=== PATIENT | female | born 1950 | race Two or more races ===

== ENCOUNTER 2016-10-29 15:41 | Emergency (ER) | payer MEDICARE, BC ==
[~2016-10-29] VITALS: Ht 167.6 cm; Wt 72.6 kg
--- NOTE | 2016-10-29 16:11 | NUR ---
DEMETRIUS FROM [facility] DT LEFT KNEE PAIN SP FALL 2 DAYS AGO, NO KO. PATIENT IS AWAKE, HOWEVER CONFUSED,. APPEARS IN NO APPRENT DISTRESS, RESPIRATION EVEN AND UNLABORED. SKIN IS WARM TO TOUCH AND NON DIAPHORETIC. PT IS AFEBRILE. VSS
--- NOTE | 2016-10-29 16:44 | NUR ---
MD SMITH AT
[2016-10-29 16:51] LABS: BASOPHILS # (AUTO) 0.1 /CMM (0.0-0.2); BASOPHILS % (AUTO) 2.4 % (0.0-2.0); EOSINOPHILS # (AUTO) 0.2 /CMM (0.0-0.7); EOSINOPHILS % (AUTO) 2.6 % (0.0-6.0); HEMATOCRIT 37 % (33-45); HEMOGLOBIN 12.2 g/dL (11.5-14.8); LYMPHOCYTES # (AUTO) 1.2 /CMM (0.8-4.8); LYMPHOCYTES % (AUTO) 19.9 % (20.0-44.0); MEAN CORPUSCULAR HEMOGLOBIN 29 PG (26.0-33.0); MEAN CORPUSCULAR HGB CONC 33 g/dl (31.0-36.0); MEAN CORPUSCULAR VOLUME 88 fL (82-100); MONOCYTES # (AUTO) 0.6 /CMM (0.1-1.30); MONOCYTES % (AUTO) 9.4 % (2.0-12.0); NEUTROPHILS # (AUTO) 4.1 /CMM (1.8-8.9); NEUTROPHILS % (AUTO) 65.7 % (43.0-81.0); PLATELET COUNT (AUTO) 176 /CMM (150-450); RDW COEFFICIENT OF VARIATION 13.9 (11.5-15.0); RED BLOOD CELL COUNT(AUTO) 4.18 MIL/uL (4.0-5.2); WHITE BLOOD COUNT (AUTO) 6.2 K/uL (4.3-11.0)
[2016-10-29 17:00] LABS: CALCIUM, SERUM 8.5 mg/dL (8.5-10.1); CREATININE 0.6 mg/dL (0.6-1.3); POTASSIUM 4.2 mmol/L (3.5-5.1)
[2016-10-29 18:18] VITALS: BP 124/80
--- NOTE | 2016-10-29 18:19 | NUR ---
PATIENT WAS PICKED UP BY TWO PATENT EXAMINER TO BE SENT TO [facility]. VSS
== END 2016-10-29 18:21 | disposition home or self-care (01) ==
LOC: ER 15:43
DX: M25.562 Pain in left knee (principal); F03.90 Unspecified dementia, unspecified severity, without behavioral disturbance, psychotic disturbance, mood disturbance, and anxiety; I10 Essential (primary) hypertension; F32.9 Major depressive disorder, single episode, unspecified; E78.00 Pure hypercholesterolemia, unspecified
CPT/HCPCS: 36415; 73564; 80048; 85025; 99285; A4606; Z7610

== ENCOUNTER 2016-11-22 10:44 | Inpatient (IN) | payer MEDICARE, BC ==
[~2016-11-22] VITALS: Ht 165.1 cm; Wt 70.8 kg
[2016-11-22] MEDS ORDERED: OLANZAPINE 10 MG VIAL IM ONE ×4 (10:52→13:30)
[2016-11-22] MEDS ORDERED: WATER FOR INJECTION,STERILE 10 ML ONE ×2 (10:53→13:15)
--- NOTE | 2016-11-22 10:54 | NUR ---
Bibra from [facility] due to pt is more verbal non usual-- per report, staffs are suspecting abdominal pain. Patient arrived, alert, noted yelling with no apparent reason. Able to follow single command, howver patient is confused. Denies pain, abdomen non tendered and non distented. Skin is warm to touch and non diaphoretic, patient is afebrile. vss
[2016-11-22 11:11] LABS: BASOPHILS % (AUTO) 0.2 % (0.0-2.0); EOSINOPHILS # (AUTO) 0.1 /CMM (0.0-0.7); EOSINOPHILS % (AUTO) 3.2 % (0.0-6.0); HEMATOCRIT 31 % (33-45); HEMOGLOBIN 10.7 g/dL (11.5-14.8); LYMPHOCYTES # (AUTO) 0.9 /CMM (0.8-4.8); LYMPHOCYTES % (AUTO) 26.3 % (20.0-44.0); MEAN CORPUSCULAR HEMOGLOBIN 31 PG (26.0-33.0); MEAN CORPUSCULAR HGB CONC 35 g/dl (31.0-36.0); MEAN CORPUSCULAR VOLUME 89 fL (82-100); MONOCYTES # (AUTO) 0.3 /CMM (0.1-1.30); MONOCYTES % (AUTO) 8.3 % (2.0-12.0); NEUTROPHILS # (AUTO) 2.3 /CMM (1.8-8.9); PLATELET COUNT (AUTO) 167 /CMM (150-450); RDW COEFFICIENT OF VARIATION 14.1 (11.5-15.0); RED BLOOD CELL COUNT(AUTO) 3.48 MIL/uL (4.0-5.2); WHITE BLOOD COUNT (AUTO) 3.6 K/uL (4.3-11.0)
[2016-11-22] MEDS ORDERED: CARV3.122 PO (11:13)
[2016-11-22] MEDS ORDERED: LOPE2CAP PO (11:13)
[2016-11-22] MEDS ORDERED: LIOT25TA9 PO (11:13)
[2016-11-22] MEDS ORDERED: ACET-868 PO (11:13)
[2016-11-22] MEDS ORDERED: OLAN2.5T3 PO (11:13)
[2016-11-22] MEDS ORDERED: ASPI-991 PO (11:13)
[2016-11-22] MEDS ORDERED: CALC1CAP21 PO (11:13)
[2016-11-22] MEDS ORDERED: OLAN5TAB3 PO (11:13)
[2016-11-22] MEDS ORDERED: OXYB10TA PO (11:13)
[2016-11-22] MEDS ORDERED: MULT-24 PO (11:13)
[2016-11-22] MEDS ORDERED: CYAN10009 PO (11:13)
[2016-11-22] MEDS ORDERED: CITA20TA11 PO (11:13)
[2016-11-22] MEDS ORDERED: GABA-532 PO (11:13)
[2016-11-22] MEDS ORDERED: ATOR10TA PO (11:13)
[2016-11-22] MEDS ORDERED: AMLO5TAB2 PO (11:13)
[2016-11-22] MEDS ORDERED: LAMO150T33 PO (11:13)
[2016-11-22] MEDS ORDERED: DOCU250C75 PO (11:13)
[2016-11-22] MEDS ORDERED: LOSA100T15 PO (11:13)
[2016-11-22] MEDS ORDERED: LORA0.5T PO (11:13)
[2016-11-22 11:17] LABS: APPEARANCE,URINE Slightly Cloudy (CLEAR); BILIRUBIN,URINE Negative (NEGATIVE); BLOOD, URINE Negative Ery/uL (NEGATIVE); COLOR,URINE Yellow (YELLOW); KETONES,URINE Negative (NEGATIVE); LEUKOCYTE ESTERASE ,URINE Negative (NEGATIVE); NITRITE, URINE Positive (NEGATIVE); PH,URINE 5.5 (5.0-8.0); PROTEIN,URINE Negative (NEGATIVE); UGLUCOSE Negative (NEGATIVE); UROBILINOGEN,URINE 0.2 EU/dL (0.2)
[2016-11-22 11:19] LABS: CALCIUM, SERUM 8.3 mg/dL (8.5-10.1); CREATININE 0.5 mg/dL (0.6-1.3); POTASSIUM 3.6 mmol/L (3.5-5.1)
[2016-11-22 11:27] LABS: ALBUMIN 3.1 g/dL (3.4-5.0); BILIRUBIN,DIRECT 0.1 mg/dL (0.0-0.2); BILIRUBIN,TOTAL 0.3 mg/dL (0.2-1.0); TOTAL PROTEIN, SERUM 6.1 g/dL (6.4-8.2)
[2016-11-22 11:31] LABS: BACTERIA,URINE Many /HPF (None Seen); RBC,URINE 0-2 /HPF (0-2); SQUAMOUS EPITHELIAL CELL,UR Few /HPF (None Seen); WBC,URINE 0-2 /HPF (0-3)
[2016-11-22] MEDS ORDERED: CEFTRIAXONE 1GM BAG (ER ONLY) 50 ML IV ONE (12:27)
[2016-11-22] MEDS ORDERED: CEFTRIAXONE 1 G in IV D5W 50 ML IV ONE (12:30)
--- NOTE | 2016-11-22 13:12 | NUR ---
CALLED [facility] DR SILVA WAS PAGED.
[2016-11-22] MEDS ORDERED: METOPROLOL TARTRATE INJ 5 MG/5 ML AMPUL IVP STA (13:31)
[2016-11-22] MEDS ORDERED: METOPROLOL TARTRATE INJ 5 MG/5 ML AMPUL ONE (13:32)
--- NOTE | 2016-11-22 13:56 | NUR ---
CALLED [facility] DR SILVA WAS REPAGED.
--- NOTE | 2016-11-22 14:02 | NUR ---
DR SILVA ON THE PHONE WITH DR CORRAL.
--- NOTE | 2016-11-22 14:02 | NUR ---
report given to demetris. pt transfered to floor. stable vitals.
--- NOTE | 2016-11-22 14:10 | NUR ---
RN MS NOTES PATIENT TRANSFERRED FROM E.R. DEPARTMENT, VIA [place], ALERT AND ORIENTESD X3 WITH EPISODE OF CONFUSION AND SCREAMING, PATIENT HAS BEHAVIOR OF TAPPING RIGHT HIP, NO SHORTNESS OF BREATH, NO DISTRESS NOTED, PATIENT COMPLAINED OF RIGHT HIP PAIN 3/10, NO COMPLAINT OF ABDOMINAL PAIN, ALL NEEDS ATTENDED AND MET, CALL LIGHT WITHIN REACH, WILL CONTINUE TO MONITOR.
[2016-11-22 14:30] VITALS: BP 178/100
[2016-11-22] MEDS ORDERED: MAG HYDROX/AL HYDROX/SIMETH 30 ML UDC PO PRN (14:30)
[2016-11-22] MEDS: CARVEDILOL 3.125 MG TABLET PO SCH ×2 (14:30→18:03)
[2016-11-22] MEDS ORDERED: MAGNESIUM HYDROXIDE 30 ML UDC PO PRN (14:30)
[2016-11-22] MEDS ORDERED: ONDANSETRON HCL/PF 4 MG/2 ML VIAL IVP PRN (14:30)
[2016-11-22] MEDS ORDERED: HYDROCODONE/APAP 5/325MG 1 EACH TABLET PO PRN (14:30)
[2016-11-22] MEDS ORDERED: ZOLPIDEM TARTRATE 5 MG TABLET PO PRN (14:30)
[2016-11-22] MEDS ORDERED: LOPERAMIDE HCL (2 MG CAP) 2 MG CAPSULE PO PRN (14:30)
[2016-11-22] MEDS: AMLODIPINE BESYLATE 5 MG TABLET PO SCH ×2 (14:30→17:09)
[2016-11-22] MEDS ORDERED: ACETAMINOPHEN 325 MG TABLET PO PRN ×2 (14:30)
[2016-11-22] MEDS ORDERED: Z GUARD REMEDY 2 OZ OINT TP PRN (14:30)
[2016-11-22 14:45] VITALS: BP 192/94
[2016-11-22] MEDS ORDERED: IV SET PRIMARY PUMP SET 1 EA INFUS.SET MC ONE (15:02)
[2016-11-22] MEDS: CITALOPRAM HYDROBROMIDE 20 MG TABLET PO SCH (15:11)
[2016-11-22] MEDS: ASPIRIN EC 81 MG TABLET.DR PO SCH (15:11)
[2016-11-22] MEDS: GABAPENTIN 100 MG CAPSULE PO SCH ×2 (15:12→17:09)
[2016-11-22] MEDS: DOCUSATE SODIUM 250 MG CAPSULE PO SCH ×2 (15:12→21:28)
[2016-11-22] MEDS: CYANOCOBALAMIN 500 MCG TABLET PO SCH (15:12)
[2016-11-22] MEDS: MULTIVITAMINS,THERAPEUTIC 1 UDTAB TABLET PO SCH (15:12)
[2016-11-22] MEDS: IV NS 0.9% 1,000 ML IV PRN (15:20)
--- NOTE | 2016-11-22 15:27 | NUR ---
RN MS NOTES BLOOD PRESSURE MEDICATIONS HELD DUE TO LOW HEART RATE OF 52. WILL RECHECK BLOOD PRESSURE IN AN HOUR.
[2016-11-22] MEDS ORDERED: IOHEXOL-300 100 ML VIAL IV ONE (15:33)
[2016-11-22] MEDS ORDERED: CT SWABBABLE VALVE TRANS SET 1 EA INFUS.SET MC ONE (15:33)
[2016-11-22] MEDS ORDERED: IV NS 0.9% 0 ML IV ONE (15:33)
[2016-11-22 16:00] VITALS: BP 186/97
[2016-11-22] MEDS: LORAZEPAM 0.5 MG TABLET PO PRN (16:38)
--- NOTE | 2016-11-22 16:39 | NUR ---
PT WILL NOT STOP MOVING OR YELLING, RN IS AWARE. RN WILL CALL WHEN PT IS READY FOR CT SCAN.
--- NOTE | 2016-11-22 16:58 | NUR ---
RN MS NOTES PATIENT SEEN AND EXAMINED BY DR. SILVA, INFORMED MD, PER AUTH SPECIALIST PATIENT MAY NOT BE ABLE TO STAY STILL FOR THE CT SCAN, PER MD, RECEIVED ORDER TO CANCEL CT SCAN, INFORMED MD OF LATEST VITAL SIGS 160/90 PULSE 50-52. PIV ON RIGHT AC INFILTRATED, REINSERTED PIV ON LEFT HAND G20, AFTER 3 ATTEMPTS, PATIENT IS IN STABLE CONDITION AT THIS TIME, WILL CONTINUE TO MONITOR.
--- NOTE | 2016-11-22 18:32 | NUR ---
RN MS NOTES PATIENT IN BED, WATCHING TV, IN STABLE CONDITION, DENIES PAIN AT THIS TIME, PIV ON LEFT HAND PATENT AND INTACT, ATIVAN EFFECTIVE, PATIENT APPEARS COMFORTABLE AND CALM, ALL NEEDS ATTENDED AND MET, CALL LIGHT WITHIN REACH, WILL ENDORSE TO CHARTER REPRESENTATIVE FOR HUGH.
--- NOTE | 2016-11-22 19:10 | NUR ---
RN NOTES RECEIVED PT AWAKE, NO SOB, NOT IN DISTRESS, ON ROOM AIR WITH GOOD SATURATION. PT ALERT AND ORIENTED X2, WITH CONFUSION, WITH BEHAVIOUR OF SCREAMING AND TAPPING HER RIGHT HIP/UPPER THIGH. ABDOMEN SOFT, NON TENDER, PT DENIES PAIN AT THIS TIME. IV ACCESS ON LEFT HAND PATENT AND INTACT WITH ONGOING IVF INFUSING WELL. KEPT BED IN THE LOWEST POSITION, LOCKED, SIDE RAILS X3 UP, BED ALARM ON, WITH CALL LIGHT WITH IN REACH. KEPT COMFORTABLE AND ATTENDED. WILL CONTINUE TO MONITOR PT.
[2016-11-22 20:00] VITALS: BP 164/94
[2016-11-22] MEDS: ATORVASTATIN 10 MG TABLET PO SCH (21:28)
[2016-11-22] MEDS: OLANZAPINE 5 MG TABLET PO SCH (21:28)
[2016-11-22 22:00] VITALS: BP 164/94
--- NOTE | 2016-11-22 23:14 | NUR ---
RN NOTES PT NOT SLEEPING, CONSTANTLY TAPPING HER RIGHT HIP AND SCREAMS AT TIMES. AMBIEN 5 MG TAB GIVEN, AND TOLERATED WELL. WILL CONTINUE TO MONITOR PT.
[2016-11-23] MEDS: IV NS 0.9% 1,000 ML IV PRN (05:04)
--- NOTE | 2016-11-23 06:40 | NUR ---
RN NOTES PT ASLEEP, BREATHING REGULAR AND UNLABORED, NO SIGNS OF DISTRESS AND DISCOMFORT NOTED. VITAL SIGNS STABLE, BP AT 160'S. NO COMPLAIN OF ABDOMINAL PAIN. NO EPISODE OF NAUSEA AND VOMITING NOTED. ON CLEAR LIQUIDS AND TOLERATED WELL. WITH EPISODE OF SCREAMING AND TAPPING HER RIGHT HIP. FALL PRECAUTION OBSERVED. ALL NEEDS MET. WILL ENDORSE TO MORNING RN FOR CONTINUITY OF CARE.
[2016-11-23 06:56] LABS: ALBUMIN 3.4 g/dL (3.4-5.0); BILIRUBIN,TOTAL 0.6 mg/dL (0.2-1.0); CALCIUM, SERUM 8.9 mg/dL (8.5-10.1); CREATININE 0.4 mg/dL (0.6-1.3); MAGNESIUM 1.9 mg/dL (1.8-2.4); PHOSPHORUS 3.9 mg/dL (2.5-4.9); POTASSIUM 3.3 mmol/L (3.5-5.1)
--- NOTE | 2016-11-23 07:30 | NUR ---
MS RN NOTES RECEIVED PT AWAKE, AOX1, WITH CONFUSION, NO SOB, NOT IN DISTRESS, NOTE PATIENT IS YELLING AND TAPPING HER RIGHT HIP/UPPER THIGH. ABDOMEN SOFT, NON TENDER. IV HL ON HER LT HAND PATENT AND INTACT WITH IVF'S ON PROGRESS. BED IN THE LOWEST POSITION, LOCKED, SIDE RAILS X3 UP, BED ALARM ON, CALL LIGHT WITH IN REACH. FOR SAFETY MEASURES. WILL CONTINUE TO MONITOR PT.
[2016-11-23 07:44] LABS: HEMOGLOBIN 13.1 g/dL (11.5-14.8); RED BLOOD CELL COUNT(AUTO) 4.31 MIL/uL (4.0-5.2); WHITE BLOOD COUNT (AUTO) 4.3 K/uL (4.3-11.0)
[2016-11-23 07:45] LABS: BASOPHILS % (AUTO) 0.2 % (0.0-2.0); EOSINOPHILS # (AUTO) 0.2 /CMM (0.0-0.7); EOSINOPHILS % (AUTO) 3.7 % (0.0-6.0); HEMATOCRIT 39 % (33-45); LYMPHOCYTES # (AUTO) 0.7 /CMM (0.8-4.8); LYMPHOCYTES % (AUTO) 17.1 % (20.0-44.0); MEAN CORPUSCULAR HEMOGLOBIN 30 PG (26.0-33.0); MEAN CORPUSCULAR HGB CONC 34 g/dl (31.0-36.0); MEAN CORPUSCULAR VOLUME 89 fL (82-100); MONOCYTES # (AUTO) 0.3 /CMM (0.1-1.30); MONOCYTES % (AUTO) 7.6 % (2.0-12.0); NEUTROPHILS # (AUTO) 3.1 /CMM (1.8-8.9); NEUTROPHILS % (AUTO) 71.4 % (43.0-81.0); PLATELET COUNT (AUTO) 175 /CMM (150-450); RDW COEFFICIENT OF VARIATION 14.8 (11.5-15.0)
[2016-11-23 08:00] VITALS: BP 160/85
--- NOTE | 2016-11-23 08:30 | NUR ---
MS RN NOTES SEEN AND EXAMINED BY DR. SILVA WITH NO NEW ORDERS MADE.
[2016-11-23] MEDS: GABAPENTIN 100 MG CAPSULE PO SCH ×3 (08:46→16:33)
[2016-11-23] MEDS: AMLODIPINE BESYLATE 5 MG TABLET PO SCH ×2 (08:46→16:33)
[2016-11-23] MEDS: LamoTRIgine 100 MG TABLET PO SCH (08:46)
[2016-11-23] MEDS: CALCIUM CARB 600MG /VIT D 1 EACH TABLET PO SCH (08:46)
[2016-11-23] MEDS: CITALOPRAM HYDROBROMIDE 20 MG TABLET PO SCH (08:47)
[2016-11-23] MEDS: PANTOPRAZOLE 40 MG TABLET.DR PO SCH (08:47)
[2016-11-23] MEDS: LOSARTAN POTASSIUM 50 MG TABLET PO SCH (08:47)
[2016-11-23] MEDS: ASPIRIN EC 81 MG TABLET.DR PO SCH (08:47)
[2016-11-23] MEDS: CARVEDILOL 3.125 MG TABLET PO SCH ×2 (08:47→16:33)
[2016-11-23] MEDS: OXYBUTYNIN CHLORIDE 5 MG TABLET PO SCH (08:47)
[2016-11-23] MEDS: MULTIVITAMINS,THERAPEUTIC 1 UDTAB TABLET PO SCH (08:48)
[2016-11-23] MEDS: OLANZAPINE 2.5 MG TABLET PO SCH (08:48)
[2016-11-23] MEDS: CYANOCOBALAMIN 500 MCG TABLET PO SCH (08:48)
[2016-11-23] MEDS: LIOTHYRONINE SODIUM (25 MCG) 25 MCG TABLET PO SCH (09:41)
[2016-11-23 11:00] VITALS: BP 136/70
[2016-11-23] MEDS ORDERED: POTASSIUM CHLORIDE 20 MEQ POWDER PACKET PO SCH (12:00)
[2016-11-23] MEDS: CEFTRIAXONE 1 G in IV D5W 50 ML IV SCH (12:06)
[2016-11-23] MEDS ORDERED: SECONDARY IV SET 1 EA INFUS.SET MC ONE (12:08)
[2016-11-23 16:00] VITALS: BP 138/84
[2016-11-23 17:18] VITALS: BP 138/89
--- NOTE | 2016-11-23 18:13 | NUR ---
MS RN NOTES ALL NEEDS ATTENDED AND ANTICIPATED. ENDORSED TO INCOMING SHIFT FOR CONTINUITY OF CARE.
--- NOTE | 2016-11-23 19:05 | NUR ---
RN NOTES RECEIVED PT ASLEEP, APPEARS COMFORTABLE IN BED, NO SOB, NOT IN DISTRESS, ON ROOM AIR WITH GOOD SATURATION. PT SCREAMING AND TAPPING HER RIGHT HIP/UPPER THIGH AT TIMES. ABDOMEN SOFT, NON TENDER, PT DENIES PAIN AT THIS TIME. IV ACCESS ON LEFT HAND PATENT AND INTACT WITH ONGOING IVF INFUSING WELL. KEPT BED IN THE LOWEST POSITION, LOCKED, SIDE RAILS X3 UP, BED ALARM ON, WITH CALL LIGHT WITH IN REACH. KEPT COMFORTABLE, CLEAN AND DRY. WILL CONTINUE TO MONITOR PT.
[2016-11-23 20:00] VITALS: BP 127/75
[2016-11-23] MEDS: OLANZAPINE 5 MG TABLET PO SCH (21:17)
[2016-11-23] MEDS: ATORVASTATIN 10 MG TABLET PO SCH (21:17)
[2016-11-23] MEDS: DOCUSATE SODIUM 250 MG CAPSULE PO SCH (21:17)
[2016-11-23 22:00] VITALS: BP 127/75
[2016-11-24] MEDS: IV NS 0.9% 1,000 ML IV PRN ×2 (05:03→17:33)
--- NOTE | 2016-11-24 06:16 | NUR ---
RN NOTES PT ASLEEP, BREATHING REGULAR AND UNLABORED, NO SIGNS OF DISTRESS AND DISCOMFORT NOTED. VITAL SIGNS STABLE, AFEBRILE. NO COMPLAIN OF PAIN. NO EPISODE OF NAUSEA AND VOMITING. ALL DUE MEDS GIVEN. ON CLEAR LIQUIDS AND TOLERATED WELL. KEPT DRY AND CLEAN. NO SIGNIFICANT CHANGE IN CONDITION NOTED. WILL ENDORSE TO MORNING RN FOR CONTINUITY OF CARE.
--- NOTE | 2016-11-24 07:17 | NUR ---
MS/RN Patient received Patient received form loading unit operator crimping. Appears comfortable, in no apparent distress, bed in low setting, brakes locked, side rails X3 in upright position. Call light within reach, will continue to monitor and ensure safety.
[2016-11-24] MEDS: PANTOPRAZOLE 40 MG TABLET.DR PO SCH (07:45)
[2016-11-24] MEDS: MULTIVITAMINS,THERAPEUTIC 1 UDTAB TABLET PO SCH (07:46)
[2016-11-24] MEDS: CITALOPRAM HYDROBROMIDE 20 MG TABLET PO SCH (07:46)
[2016-11-24] MEDS: OLANZAPINE 2.5 MG TABLET PO SCH (07:46)
[2016-11-24] MEDS: OXYBUTYNIN CHLORIDE 5 MG TABLET PO SCH (07:46)
[2016-11-24] MEDS: LORAZEPAM 0.5 MG TABLET PO PRN (07:46)
[2016-11-24] MEDS: ASPIRIN EC 81 MG TABLET.DR PO SCH (07:46)
[2016-11-24] MEDS: CALCIUM CARB 600MG /VIT D 1 EACH TABLET PO SCH (07:46)
[2016-11-24] MEDS: GABAPENTIN 100 MG CAPSULE PO SCH ×3 (07:46→17:34)
[2016-11-24] MEDS: AMLODIPINE BESYLATE 5 MG TABLET PO SCH ×2 (07:47→17:34)
[2016-11-24] MEDS: CYANOCOBALAMIN 500 MCG TABLET PO SCH (07:47)
[2016-11-24] MEDS: LIOTHYRONINE SODIUM (25 MCG) 25 MCG TABLET PO SCH (07:48)
[2016-11-24] MEDS: LamoTRIgine 100 MG TABLET PO SCH (07:48)
[2016-11-24] MEDS: CARVEDILOL 3.125 MG TABLET PO SCH ×2 (07:52→17:34)
[2016-11-24] MEDS: LOSARTAN POTASSIUM 50 MG TABLET PO SCH (07:53)
[2016-11-24 08:00] VITALS: BP 145/70
[2016-11-24] MEDS: CEFTRIAXONE 1 G in IV D5W 50 ML IV SCH (12:14)
[2016-11-24 16:00] VITALS: BP 168/83
--- NOTE | 2016-11-24 16:00 | NUR ---
MS/RN Turn and reposition Patient has been turned and repositioned every 2-3 hours to prevent skin breakdown.
--- NOTE | 2016-11-24 17:54 | NUR ---
MS/RN Medications Evening medications administered as ordered, no apparent problems swallowing.
--- NOTE | 2016-11-24 18:27 | NUR ---
MS/RN End note No changes in care at this time. Skin kept clean and dry, has been turned and repositioned every 2-3 hours to prevent skin breakdown. No new orders from Dr Hernandez, awaiting further instruction as to discharge plan. Will endorse to night clerk.
--- NOTE | 2016-11-24 19:30 | NUR ---
MS RN NOTE RECEIVED PATIENT FROM DAY SHIFT, PATIENT IS ALERT AND ORIENTEDX1-2, NO S/S OF RESPIRATORY DISTRESS OR PAIN AT THIS TIME. IV ON LEFT HAND IS PATENT AND INTACT, FLUID IS RUNNING. SRX2, BED IN LOW POSITION, CALL LIGHT WITHIN REACH, WILL CONTINUE TO MONITOR PATIENT.
[2016-11-24 19:54] VITALS: BP 156/91
[2016-11-24] MEDS: OLANZAPINE 5 MG TABLET PO SCH (21:13)
[2016-11-24] MEDS: ATORVASTATIN 10 MG TABLET PO SCH (21:13)
[2016-11-24] MEDS: DOCUSATE SODIUM 250 MG CAPSULE PO SCH (21:13)
[2016-11-25] MEDS: IV NS 0.9% 1,000 ML IV PRN (06:00)
--- NOTE | 2016-11-25 06:00 | NUR ---
MS RN NOTE PATIENT MADE 3X LOOSE STOOL, SMELLS SO BAD. CONTACTED MD TO GET C-DIFF LAB ORDER. STOOL SAMPLE COLLECTED, WILL ENDORSE TO DAY SHIFT TO F/U.
--- NOTE | 2016-11-25 06:49 | NUR ---
MS RN NOTE PATIENT IS SLEEPING IN BED, NO S/S OF RESPIRATORY DISTRESS NO FACIAL GRIMACE NOTED. IV ON LEFT HAND IS PATENT AND INTACT, NS IS RUNNING. WILL ENDORSE TO DAY SHIFT FOR HUGH.
--- NOTE | 2016-11-25 07:14 | NUR ---
MS RN OPENING NOTE PATIENT IS ALERT AND ORIENTED x1-2. NO PAIN AT THIS TIME. NO SOB OR DISTRESS NOTED. CALL LIGHT WITHIN REACH. SAFETY MEASURES IMPLEMENTED. IV INTACT AND PATENT NO REDNESS OR SWELLING NOTED. STOOL CULTURE COLLECTED FOR C.DIFF. ON CLEAR LIQUIDS. WILL CONTINUE TO MONITOR
[2016-11-25 08:00] VITALS: BP 160/83
[2016-11-25] MEDS: PANTOPRAZOLE 40 MG TABLET.DR PO SCH (08:09)
[2016-11-25] MEDS: ASPIRIN EC 81 MG TABLET.DR PO SCH (08:09)
[2016-11-25] MEDS: LamoTRIgine 100 MG TABLET PO SCH (08:09)
[2016-11-25] MEDS: GABAPENTIN 100 MG CAPSULE PO SCH ×3 (08:09→16:42)
[2016-11-25] MEDS: CALCIUM CARB 600MG /VIT D 1 EACH TABLET PO SCH (08:09)
[2016-11-25] MEDS: OLANZAPINE 2.5 MG TABLET PO SCH (08:10)
[2016-11-25] MEDS: CYANOCOBALAMIN 500 MCG TABLET PO SCH (08:10)
[2016-11-25] MEDS: MULTIVITAMINS,THERAPEUTIC 1 UDTAB TABLET PO SCH (08:10)
[2016-11-25] MEDS: CITALOPRAM HYDROBROMIDE 20 MG TABLET PO SCH (08:10)
[2016-11-25] MEDS: OXYBUTYNIN CHLORIDE 5 MG TABLET PO SCH (08:11)
[2016-11-25] MEDS: AMLODIPINE BESYLATE 5 MG TABLET PO SCH ×2 (08:11→16:42)
[2016-11-25] MEDS: CARVEDILOL 3.125 MG TABLET PO SCH ×2 (08:12→16:42)
[2016-11-25] MEDS: LIOTHYRONINE SODIUM (25 MCG) 25 MCG TABLET PO SCH (08:13)
[2016-11-25] MEDS: LOSARTAN POTASSIUM 50 MG TABLET PO SCH (08:13)
[2016-11-25] MEDS: CEFTRIAXONE 1 G in IV D5W 50 ML IV SCH (11:07)
[2016-11-25 16:00] VITALS: BP 132/85
--- NOTE | 2016-11-25 18:35 | NUR ---
MS RN CLOSING NOTE PATIENT IS ALERT AND ORIENTED x1. CALL LIGHT WITHIN REACH AT ALL TIMES. SAFETY MEASURES IMPLEMENTED. NO PAIN AT THIS TIME. NO SOB OR DISTRESS NOTED. STOOL SAMPLE COLLECTED FOR C.DIFF. IV INTACT AND PATENT NO REDNESS OR SWELLING NOTED. MULTIPLE EPISODES OF LOOSE BM. POSSIBLE SNF PLACEMENT. WILL ENDORSE TO AGRICULTURAL SCIENCES PROFESSOR NURSE
--- NOTE | 2016-11-25 19:25 | NUR ---
MS RN NOTES RECEIVED ON BED SLEEPING,AROUSABLE TO VERBAL STIMULI,SKIN WARM AND DRY TO THE TOUCH,PRESENT IVF OF NS AT 75ML/HR RATE INFUSING WELL ON LEFT HAND,SITE PATENT.ON ISOFLEX BED FOR SKIN MANAGEMENT.CALL LIGHT IN REACH,NEEDS ANTICIPATED.
[2016-11-25 21:29] VITALS: BP 124/73
[2016-11-25] MEDS: OLANZAPINE 5 MG TABLET PO SCH (21:51)
[2016-11-25] MEDS: ATORVASTATIN 10 MG TABLET PO SCH (21:51)
[2016-11-25] MEDS: DOCUSATE SODIUM 250 MG CAPSULE PO SCH (21:51)
--- NOTE | 2016-11-26 | NUR ---
MS RN NOTES HAD BM,CLEANED BY DANIKA SEYMOUR TO COMFORT
[2016-11-26] MEDS ORDERED: IV NS 0.9% 1,000 ML ONE (01:12)
[2016-11-26] MEDS: IV NS 0.9% 1,000 ML IV PRN ×2 (01:18→15:17)
--- NOTE | 2016-11-26 01:30 | NUR ---
MS RN NOTES IV SITE INFILTRATED,NEW SALINE LOCK PLACE ON RIGHT WRIST #22,SAME IVF INFUSING
--- NOTE | 2016-11-26 06:22 | NUR ---
MS RN CLOSING NOTES NO SIGNIFICANT CHANGE IN STATUS,TAPPING THIGH IF SHE NEED SOMETHING,A/O X1-2.AWAITING SNF PLACEMENT.NEEDS ATTENDED.WILL ENDORSE TO DAY NURSE FOR HUGH.
[2016-11-26 06:43] LABS: BASOPHILS % (AUTO) 0.2 % (0.0-2.0); EOSINOPHILS # (AUTO) 0.2 /CMM (0.0-0.7); HEMATOCRIT 38 % (33-45); HEMOGLOBIN 13.2 g/dL (11.5-14.8); LYMPHOCYTES # (AUTO) 0.7 /CMM (0.8-4.8); MEAN CORPUSCULAR HEMOGLOBIN 31 PG (26.0-33.0); MEAN CORPUSCULAR HGB CONC 35 g/dl (31.0-36.0); MEAN CORPUSCULAR VOLUME 91 fL (82-100); MONOCYTES # (AUTO) 0.4 /CMM (0.1-1.30); MONOCYTES % (AUTO) 7.6 % (2.0-12.0); NEUTROPHILS # (AUTO) 4.2 /CMM (1.8-8.9); NEUTROPHILS % (AUTO) 77.2 % (43.0-81.0); PLATELET COUNT (AUTO) 162 /CMM (150-450); RDW COEFFICIENT OF VARIATION 15.6 (11.5-15.0); RED BLOOD CELL COUNT(AUTO) 4.24 MIL/uL (4.0-5.2); WHITE BLOOD COUNT (AUTO) 5.4 K/uL (4.3-11.0)
[2016-11-26 07:14] LABS: CALCIUM, SERUM 8.5 mg/dL (8.5-10.1); CREATININE 0.5 mg/dL (0.6-1.3); POTASSIUM 3.5 mmol/L (3.5-5.1)
--- NOTE | 2016-11-26 07:15 | NUR ---
RN MS NOTES PATIENT IN BED, ASLEEP BUT EASILY AROUSABLE, NO S/SX OF PAIN AT THIS TIME, IVF INFUSING AND TOLERATING WELL, SAFETY MEASURES IN PLACED, CALL LIGHT WITHIN REACH, WILL CONTINUE TO MONITOR.
[2016-11-26 08:00] VITALS: BP 150/75
[2016-11-26] MEDS: ASPIRIN EC 81 MG TABLET.DR PO SCH (08:10)
[2016-11-26] MEDS: CYANOCOBALAMIN 500 MCG TABLET PO SCH (08:10)
[2016-11-26] MEDS: CALCIUM CARB 600MG /VIT D 1 EACH TABLET PO SCH (08:10)
[2016-11-26] MEDS: CITALOPRAM HYDROBROMIDE 20 MG TABLET PO SCH (08:10)
[2016-11-26] MEDS: PANTOPRAZOLE 40 MG TABLET.DR PO SCH (08:10)
[2016-11-26] MEDS: AMLODIPINE BESYLATE 5 MG TABLET PO SCH ×2 (08:11→16:33)
[2016-11-26] MEDS: LIOTHYRONINE SODIUM (25 MCG) 25 MCG TABLET PO SCH (08:11)
[2016-11-26] MEDS: GABAPENTIN 100 MG CAPSULE PO SCH ×3 (08:11→16:32)
[2016-11-26] MEDS: OXYBUTYNIN CHLORIDE 5 MG TABLET PO SCH (08:11)
[2016-11-26] MEDS: CARVEDILOL 3.125 MG TABLET PO SCH ×2 (08:11→16:33)
[2016-11-26] MEDS: MULTIVITAMINS,THERAPEUTIC 1 UDTAB TABLET PO SCH (08:11)
[2016-11-26] MEDS: LOSARTAN POTASSIUM 50 MG TABLET PO SCH (08:12)
[2016-11-26] MEDS: OLANZAPINE 2.5 MG TABLET PO SCH (08:12)
[2016-11-26] MEDS: LamoTRIgine 100 MG TABLET PO SCH (08:12)
[2016-11-26] MEDS: BOOST PLUS FOOD-VANILLA 237 ML BOX PO SCH ×2 (09:30→16:32)
[2016-11-26] MEDS: CEFTRIAXONE 1 G in IV D5W 50 ML IV SCH (11:34)
[2016-11-26 16:00] VITALS: BP 136/71
--- NOTE | 2016-11-26 18:21 | NUR ---
RN MS NOTES PATIENT SEEN BY DR. COOK AND GOMEZ STUFFED CASING TIER, PATIENT TOLERATED MECHANICAL SOFT FOR DINNER, ASSISTED WITH TURNING AND REPOSITIONING, IVF STILL INFUSING, NO BM DURING THIS SHIFT, ALL DUE MEDS GIVEN ORDERED, CALL LIGHT WITHIN REACH, WILL ENDORSE TO FARM GENERAL MANAGER FOR HUGH.
--- NOTE | 2016-11-26 19:10 | NUR ---
MS RN NOTES RECEIVED ON BED SLEEPING,AROUSABLE TO TACTILE STIMULI,BREATHING REGULAR,NOT IN ANY FORM OF DISTRESS.IVF INFUSING WELL ON RIGHT WRIST SALINE LOCK,VIA IV PUMP.REPOSITION PER PROTOCOL.WILL CONTINUE TO MONITOR STATUS.
[2016-11-26 20:00] VITALS: BP 121/70
[2016-11-26] MEDS: OLANZAPINE 5 MG TABLET PO SCH (21:13)
[2016-11-26] MEDS: DOCUSATE SODIUM 250 MG CAPSULE PO SCH (21:13)
[2016-11-26] MEDS: ATORVASTATIN 10 MG TABLET PO SCH (21:13)
--- NOTE | 2016-11-26 22:15 | NUR ---
MS RN NOTES DUE PO MEDS ADMINISTERED WITH APPLE SAUCE,TAKEN WELL.NEGATIVE FOR ASPIRATION
--- NOTE | 2016-11-27 01:54 | NUR ---
MS RN NOTES SOUND ASLEEP.KEPT WARM AND COMFORTABLE.
[2016-11-27] MEDS: IV NS 0.9% 1,000 ML IV PRN (04:27)
--- NOTE | 2016-11-27 06:07 | NUR ---
MS RN NOTES SLEPT WELL AT NIGHT,REPOSITION.IVF INFUSING.IN NO ACUTE DISTRESS.WILL ENDORSE TO DAY NURSE FOR HUGH.
--- NOTE | 2016-11-27 07:37 | NUR ---
RN MS NOTES PATIENT ASLEEP BUT EASILY AROUSABLE, OPENS EYES, IVF INFUSING AND TOLERATING WELL, NO S/SX OF DISTRESS OR PAIN AT THIS TIME, ENSURE SAFETY AND COMFORT, ALL NEEDS ATTENDED AND MET, CALL LIGHT WITHIN REACH, WILL CONTINUE TO MONITOR.
[2016-11-27 08:00] VITALS: BP 131/91
[2016-11-27] MEDS: LIOTHYRONINE SODIUM (25 MCG) 25 MCG TABLET PO SCH (08:31)
[2016-11-27] MEDS: LamoTRIgine 100 MG TABLET PO SCH (08:32)
[2016-11-27] MEDS: CYANOCOBALAMIN 500 MCG TABLET PO SCH (08:32)
[2016-11-27] MEDS: OLANZAPINE 2.5 MG TABLET PO SCH (08:32)
[2016-11-27] MEDS: CALCIUM CARB 600MG /VIT D 1 EACH TABLET PO SCH (08:33)
[2016-11-27] MEDS: OXYBUTYNIN CHLORIDE 5 MG TABLET PO SCH (08:33)
[2016-11-27] MEDS: LOSARTAN POTASSIUM 50 MG TABLET PO SCH (08:33)
[2016-11-27] MEDS: MULTIVITAMINS,THERAPEUTIC 1 UDTAB TABLET PO SCH (08:33)
[2016-11-27] MEDS: CARVEDILOL 3.125 MG TABLET PO SCH ×2 (08:33→17:10)
[2016-11-27] MEDS: PANTOPRAZOLE 40 MG TABLET.DR PO SCH (08:33)
[2016-11-27] MEDS: ASPIRIN EC 81 MG TABLET.DR PO SCH (08:33)
[2016-11-27] MEDS: AMLODIPINE BESYLATE 5 MG TABLET PO SCH ×2 (08:34→17:10)
[2016-11-27] MEDS: GABAPENTIN 100 MG CAPSULE PO SCH ×3 (08:34→17:09)
[2016-11-27] MEDS: CITALOPRAM HYDROBROMIDE 20 MG TABLET PO SCH (08:34)
[2016-11-27] MEDS: BOOST PLUS FOOD-VANILLA 237 ML BOX PO SCH ×2 (08:38→17:10)
[2016-11-27] MEDS: CEFTRIAXONE 1 G in IV D5W 50 ML IV SCH (12:17)
[2016-11-27 16:00] VITALS: BP 126/90
[2016-11-27 17:10] VITALS: BP 126/90
--- NOTE | 2016-11-27 17:42 | NUR ---
GLASS PROCESSING WORKER NOTE RECEIVED AN ORDER FROM GOMEZ SCOTT VIDEO GAME PRODUCER FOR DISCHARGE, ORDER NOTED AND CARRIED OUT, DISCHARGE INSTRUCTIONS PROVIDED TO THE PATIENT, VIA PHONE AND ZAHRAA FROM [facility], ALL VERBALIZED UNDERSTANDING, PIV REMOVED, PATIENT IS IN NO DISTRESS, LESS SCREAMING BEHAVIOR AND LESS TAPPING ON HER HIP, NO S/SX OF PAIN NOTED, SKIN ASSESSMENT COMPLETED, PHOTO TAKEN OF RIGHT UPPER LIP AND RIGHT ARM, ALL DUE MEDS GIVEN ORDERED, TURNED AND REPOSITIONED SCHEDULED, ALL NEEDS ATTENDED AND MET, PATIENT TRANSFERRED VIA AMBULANCE IN STABLE CONDITION WITH 2 TEXTILE MACHINE MECHANIC, ALL DISCHARGE PAPERWORKS PROVIDED TO THE PATIENT.
--- NOTE | 2016-11-27 18:05 | NUR ---
PROCESS AREA SUPERVISOR HAIRSPRING ADJUSTER MADE AWARE, PATIENT LEFT BELONGINGS IN THE FACILITY.
== END 2016-11-27 17:42 | DRG 689 ==
LOC: ER 10:46 → MEDSG2 13:28
PROVIDERS: ADMIT Internal Medicine; ATTEND Internal Medicine
DX: N39.0 Urinary tract infection, site not specified (principal); G93.40 Encephalopathy, unspecified; E44.0 Moderate protein-calorie malnutrition; F03.91 Unspecified dementia, unspecified severity, with behavioral disturbance; A04.7 Enterocolitis due to Clostridium difficile; E03.9 Hypothyroidism, unspecified; D63.8 Anemia in other chronic diseases classified elsewhere; E78.5 Hyperlipidemia, unspecified; F29 Unspecified psychosis not due to a substance or known physiological condition; I10 Essential (primary) hypertension; F31.9 Bipolar disorder, unspecified; I25.10 Atherosclerotic heart disease of native coronary artery without angina pectoris; Z79.899 Other long term (current) drug therapy; B96.20 Unspecified Escherichia coli [E. coli] as the cause of diseases classified elsewhere; E88.09 Other disorders of plasma-protein metabolism, not elsewhere classified; Z68.26 Body mass index [BMI] 26.0-26.9, adult
CPT/HCPCS: 36415; 80048-TC; 80053-TC; 80061-TC; 80076-TC; 81000-TC; 83605-TC; 83690-TC; 83735-TC; 84100-TC; 85025-TC; 87040-TC; 87081-TC; 87086-TC; 87186-TC; 92521; 97001-TC; 97116-TC; 97530-TC; A4606; J0696; J3490; J7030; J7050; J7060; Q9967; Z7610

== ENCOUNTER 2017-01-06 10:47 | Inpatient (IN) | payer MEDICARE, BC ==
[~2017-01-06] VITALS: Ht 167.6 cm; Wt 72.6 kg
[~2017-01-06 10:47] MED LIST: ACET-868 PO; AMLO5TAB2 PO; ASPI-991 PO; ATOR10TA PO; CALC1CAP21 PO; CARV3.122 PO; CITA20TA11 PO; CYAN10009 PO; DOCU250C75 PO; GABA-532 PO; LAMO150T33 PO; LIOT25TA9 PO; LOPE2CAP PO; LORA0.5T PO; LOSA100T15 PO; MULT-24 PO; OLAN2.5T3 PO; OLAN5TAB3 PO; OXYB10TA PO
--- NOTE | 2017-01-06 11:00 | NUR ---
PATIENT BIB PRIVATE EMS FROM SNF D/T REFUSAL TO EAT X 2 DAYS. PATIENT IS A/OX 1. BREATHING EVEN AND UNLABORED. NO SOB. VITALS STABLE. SAFETY AND COMFORT MEASURES IN PLACE. AWAITING MD ORDERS.
[2017-01-06 11:24] LABS: BASOPHILS # (AUTO) 0.2 /CMM (0.0-0.2); BASOPHILS % (AUTO) 2.2 % (0.0-2.0); EOSINOPHILS % (AUTO) 0.4 % (0.0-6.0); HEMATOCRIT 39 % (33-45); HEMOGLOBIN 12.7 g/dL (11.5-14.8); LYMPHOCYTES # (AUTO) 0.6 /CMM (0.8-4.8); LYMPHOCYTES % (AUTO) 6.6 % (20.0-44.0); MEAN CORPUSCULAR HEMOGLOBIN 30 PG (26.0-33.0); MEAN CORPUSCULAR HGB CONC 33 g/dl (31.0-36.0); MEAN CORPUSCULAR VOLUME 91 fL (82-100); MONOCYTES # (AUTO) 0.5 /CMM (0.1-1.30); MONOCYTES % (AUTO) 5.4 % (2.0-12.0); NEUTROPHILS # (AUTO) 7.7 /CMM (1.8-8.9); NEUTROPHILS % (AUTO) 85.4 % (43.0-81.0); PLATELET COUNT (AUTO) 293 /CMM (150-450); RDW COEFFICIENT OF VARIATION 14.8 (11.5-15.0); RED BLOOD CELL COUNT(AUTO) 4.24 MIL/uL (4.0-5.2)
[2017-01-06] MEDS ORDERED: IV NS 0.9% 1,000 ML BAG IV ONE (11:30)
[2017-01-06 11:32] LABS: CALCIUM, SERUM 8.3 mg/dL (8.5-10.1); CARBON DIOXIDE 31 mmol/L (21-32); CHLORIDE 106 mmol/L (98-107); CREATININE 0.7 mg/dL (0.6-1.3); GLUCOSE 102 mg/dL (74-106); POTASSIUM 3.6 mmol/L (3.5-5.1); SODIUM SERUM 143 mmol/L (136-145); UREA NITROGEN, BLOOD 16 mg/dL (7-18)
[2017-01-06 11:37] LABS: ALANINE AMINOTRANSFERASE 27 U/L (12-78); ALBUMIN 2.7 g/dL (3.4-5.0); ALCOHOL, BLOOD < 3 mg/dL (0-0); ALKALINE PHOSPHATASE 102 U/L (46-116); ASPARTATE AMINOTRANSFERASE 20 U/L (15-37); BILIRUBIN,DIRECT 0.2 mg/dL (0.0-0.2); BILIRUBIN,TOTAL 0.7 mg/dL (0.2-1.0); TOTAL PROTEIN, SERUM 6.2 g/dL (6.4-8.2)
[2017-01-06 11:39] LABS: ACETAMINOPHEN 0 ug/ml (10-30); SALICYLATE 2.5 mg/dL (2.8-20.0)
--- NOTE | 2017-01-06 11:45 | NUR ---
URINE OBTAINED AND SENT TO LAB.
[2017-01-06 11:46] LABS: APPEARANCE,URINE Turbid (CLEAR); BILIRUBIN,URINE SMALL (NEGATIVE); BLOOD, URINE Large Ery/uL (NEGATIVE); KETONES,URINE 40 (NEGATIVE); LEUKOCYTE ESTERASE ,URINE Large (NEGATIVE); NITRITE, URINE Positive (NEGATIVE); PH,URINE 6.5 (5.0-8.0); PROTEIN,URINE >=300 mg/dl (NEGATIVE); UGLUCOSE Negative (NEGATIVE)
--- NOTE | 2017-01-06 11:46 | NUR ---
URINE OBTAINED VIA STRAIGHT CATH PER MD ORDERS.
[2017-01-06 11:47] LABS: COLOR,URINE Dark Yellow (YELLOW)
[2017-01-06 11:55] LABS: BACTERIA,URINE Many /HPF (None Seen); RBC,URINE 21-50 /HPF (0-2); SQUAMOUS EPITHELIAL CELL,UR Moderate /HPF (None Seen); WBC,URINE TOO NUMEROUS TO COUN /HPF (0-3)
--- NOTE | 2017-01-06 12:00 | NUR ---
CALLED [facility] FOR PSYCH EVAL, ETA 45 MIN
[2017-01-06] MEDS ORDERED: ESCI20TA PO (12:07)
--- NOTE | 2017-01-06 12:21 | NUR ---
CALLED BACK [facility] TO CANCEL PSYCH EVAL
--- NOTE | 2017-01-06 12:26 | NUR ---
CALLED NURSING SUP. FOR MS BED
[2017-01-06] MEDS ORDERED: CEFTRIAXONE 1GM BAG (ER ONLY) 50 ML IV ONE (12:28)
[2017-01-06] MEDS ORDERED: IV NS 0.9% 1,000 ML IV ONE (12:30)
[2017-01-06] MEDS ORDERED: CEFTRIAXONE 1GM BAG (ER ONLY) 1 GM/50 ML PIGGYBACK IV ONE (12:30)
--- NOTE | 2017-01-06 12:34 | NUR ---
CALLED DR.JOSEF NARANJO, TRANSFERRED CALL TO
--- NOTE | 2017-01-06 13:14 | NUR ---
REPORT GIVEN TO RNANDRE FOR ADMISSION TO [facility]
--- NOTE | 2017-01-06 13:55 | NUR ---
PATIENT TRANSPORTED VIA STRETCHER TO [facility] FOR ADMISSION.
--- NOTE | 2017-01-06 14:00 | NUR ---
MS/family service caseworker New admission from emergency room with UTI. Fully admitted, pictures taken.
--- NOTE | 2017-01-06 15:26 | NUR ---
MS/RN Orders Dr Ro called for admitting orders. Diet order given, home medications reconciled. Will be in to see patient and given further orders.
--- NOTE | 2017-01-06 15:29 | NUR ---
MS/RN Home medications Home medication list sent to pharmacy.
[2017-01-06 16:00] VITALS: BP 156/84
[2017-01-06] MEDS ORDERED: IV D5/0.45 NACL 500 ML IV SCH (18:00)
[2017-01-06] MEDS ORDERED: hydrALAZINE HCL 50 MG TABLET PO PRN (18:00)
[2017-01-06] MEDS ORDERED: ACETAMINOPHEN 325 MG TABLET PO PRN (18:00)
[2017-01-06] MEDS ORDERED: ONDANSETRON HCL/PF 4 MG/2 ML VIAL IV PRN (18:00)
[2017-01-06] MEDS ORDERED: LORAZEPAM 0.5 MG TABLET PO PRN (18:00)
[2017-01-06] MEDS: ENOXAPARIN SODIUM 40 MG/0.4 ML DISP.SYRIN SQ SCH (18:32)
--- NOTE | 2017-01-06 18:41 | NUR ---
MS/RN End note Seen by Dr Ro - order's for IV hydration wrote and labs for tomorrow. Unable to hang IV fluids as order is for 500ml bag and we only have 1 liter bags as stock on floor. Pharmacy called and spoke with Thomas, stated that order will be changed. Central supply called and SCD machine ordered. Skin kept clean and dry, turned and repositioned every 2-3 hours. Call light within reach, will continue to monitor.
--- NOTE | 2017-01-06 19:45 | NUR ---
RN OPENING NOTES RECEIVED REPORT FROM OSWLADO RNANDRE. FOUND Pt AWAKE IN BED. Pt IS A/OX1, CONFUSED. IV ACCESS ON RAC #20G. NO S/S OF ACUTE DISTRESS OR SOB NOTED. SAFETY MEASURES IN PLACE. BED LOW, LOCKED, HOB ELEVATED, SIDE RAILS UP, CALL LIGHT AND BEDSIDE TABLE WITHIN REACH. WILL CONTINUE TO MONITOR Pt THROUGHOUT THE NIGHT FOR SAFETY.
[2017-01-06 19:58] VITALS: BP 129/72
[2017-01-06 20:00] VITALS: BP 129/72
[2017-01-06] MEDS: ATORVASTATIN 10 MG TABLET PO SCH (22:08)
[2017-01-06] MEDS: OLANZAPINE 5 MG TABLET PO SCH (22:08)
[2017-01-06] MEDS: DOCUSATE SODIUM 250 MG CAPSULE PO SCH (22:08)
[2017-01-06] MEDS: IV D5/0.45 NACL 1,000 ML IV PRN (22:11)
--- NOTE | 2017-01-07 06:44 | NUR ---
RN CLOSING NOTES NO SIGNIFICANT CHANGES IN Pt's CONDITION. NO S/S OF ACUTE DISTRESS OR SOB NOTED. ALL NEEDS MET AND ATTENDED TO. SAFETY MEASURES CARRIED OUT. WILL ENDORSE TO DAYSHIFT RN FOR Pt's HUGH.
--- NOTE | 2017-01-07 07:30 | NUR ---
RN MS OPENING NOTES RECEIVED PATIENT IN BED, AWAKE, HOB ELEVATED, NO SOB OR DISTRESS NOTED. A/O X 1. IV INTACT AND PATENT. KEEP PATIENT CLEAN AND COMFORTABLE IN BED, CALL LIGHT WITHIN PATIENT REACH, WILL CONTINUE TO MONITOR ACCORDINGLY.
[2017-01-07 08:00] VITALS: BP 136/74
[2017-01-07] MEDS: LIOTHYRONINE SODIUM (25 MCG) 25 MCG TABLET PO SCH (08:49)
[2017-01-07] MEDS: OXYBUTYNIN CHLORIDE 5 MG TABLET PO SCH (08:49)
[2017-01-07] MEDS: LOSARTAN POTASSIUM 50 MG TABLET PO SCH (08:50)
[2017-01-07] MEDS: ESCITALOPRAM OXALATE (10 MG) 10 MG TABLET PO SCH (08:50)
[2017-01-07] MEDS: GABAPENTIN 100 MG CAPSULE PO SCH ×3 (08:51→18:38)
[2017-01-07] MEDS: PANTOPRAZOLE 40 MG TABLET.DR PO SCH (08:51)
[2017-01-07] MEDS: ASPIRIN EC 81 MG TABLET.DR PO SCH (08:51)
[2017-01-07] MEDS: OLANZAPINE 2.5 MG TABLET PO SCH (08:51)
[2017-01-07] MEDS: MULTIVITAMINS,THERAGRAN 1 UDTAB TABLET PO SCH (08:51)
[2017-01-07] MEDS: LamoTRIgine 100 MG TABLET PO SCH (08:51)
[2017-01-07] MEDS: CALCIUM CARB 600MG /VIT D 1 EACH TABLET PO SCH (08:51)
[2017-01-07] MEDS: CARVEDILOL 3.125 MG TABLET PO SCH ×2 (08:52→18:39)
--- NOTE | 2017-01-07 09:45 | NUR ---
RN NOTES PATIENT IS COMFORTABLE IN BED WITH NO SOB OR DISTRESS NOTED.
[2017-01-07] MEDS: CEFTRIAXONE 1 G in IV D5W 50 ML IV SCH (12:05)
[2017-01-07] MEDS: IV D5/0.45 NACL 1,000 ML IV PRN (12:06)
[2017-01-07 16:00] VITALS: BP 137/82
--- NOTE | 2017-01-07 19:25 | NUR ---
MS RN NOTE RECEIVED PATIENT FROM DAY SHIFT, PATIENT IS ALERT AND ORIENTEDX1, CONFUSED AT TIMES, NO S/S OF RESPIRATORY DISTRESS OR CARDOZO AT THIS TIE. IV ON RIGHT AC IS PATENT AND INTACT, HL ONLY. SRX2, BED IN LOW POSITION, CALL LIGHT WITHIN REACH, WILL CONTINUE TO MONITOR PATIENT.
--- NOTE | 2017-01-07 19:40 | NUR ---
RN NOTES ALL NEEDS PROVIDED, ATTENDED, AND ANTICIPATED. KEPT PATIENT CLEAN AND COMFORTABLE IN BED. CALL LIGHT WITHIN PATIENT REACH, WILL CONTINUE TO MONITOR ACCORDINGLY. ENDORSED TO NEXT SHIFT RN TO CONTINUE CARE.
[2017-01-07 20:00] VITALS: BP 114/69
[2017-01-07] MEDS: ENOXAPARIN SODIUM 40 MG/0.4 ML DISP.SYRIN SQ SCH (21:07)
[2017-01-07] MEDS: ATORVASTATIN 10 MG TABLET PO SCH (21:41)
[2017-01-07] MEDS: OLANZAPINE 5 MG TABLET PO SCH (21:41)
[2017-01-07] MEDS: DOCUSATE SODIUM 250 MG CAPSULE PO SCH (21:41)
--- NOTE | 2017-01-08 00:34 | NUR ---
MS RN NOTE PATIENT LOOKS ANXIOUS AND KEEPS YELLING. ATIVAN 0.5MG PO GIVEN WITH APPLE SAUCE.
[2017-01-08 06:49] LABS: BASOPHILS % (AUTO) 0.3 % (0.0-2.0); EOSINOPHILS # (AUTO) 0.1 /CMM (0.0-0.7); EOSINOPHILS % (AUTO) 2.7 % (0.0-6.0); HEMATOCRIT 31 % (33-45); HEMOGLOBIN 10.5 g/dL (11.5-14.8); LYMPHOCYTES % (AUTO) 22.6 % (20.0-44.0); MEAN CORPUSCULAR HEMOGLOBIN 31 PG (26.0-33.0); MEAN CORPUSCULAR HGB CONC 35 g/dl (31.0-36.0); MEAN CORPUSCULAR VOLUME 91 fL (82-100); MONOCYTES # (AUTO) 0.5 /CMM (0.1-1.30); MONOCYTES % (AUTO) 11.8 % (2.0-12.0); NEUTROPHILS # (AUTO) 2.8 /CMM (1.8-8.9); NEUTROPHILS % (AUTO) 62.6 % (43.0-81.0); PLATELET COUNT (AUTO) 192 /CMM (150-450); RDW COEFFICIENT OF VARIATION 15.7 (11.5-15.0); RED BLOOD CELL COUNT(AUTO) 3.35 MIL/uL (4.0-5.2); WHITE BLOOD COUNT (AUTO) 4.5 K/uL (4.3-11.0)
--- NOTE | 2017-01-08 06:55 | NUR ---
MS RN NOTE PATIENT IS RESTING IN BED COMFORTABLY, NO ACUTE DISTRESS NOTED DURING THE MERCERIZER MACHINE OPERATOR. NO S/S OF RESPIRATORY DISTRESS OR NO FACIAL GRIMACE NOTED. IV ON RIGHT AC IS PATENT AND INTACT. WILL ENDORSE TO DAY SHIFT NURSE FOR HUGH.
[2017-01-08 07:19] LABS: ALBUMIN 1.9 g/dL (3.4-5.0); BILIRUBIN,TOTAL 0.3 mg/dL (0.2-1.0); CALCIUM, SERUM 7.6 mg/dL (8.5-10.1); CREATININE 0.4 mg/dL (0.6-1.3); POTASSIUM 3.4 mmol/L (3.5-5.1); TOTAL PROTEIN, SERUM 4.7 g/dL (6.4-8.2)
--- NOTE | 2017-01-08 07:40 | NUR ---
MS RN OPENING NOTES RECEIVED PT. FROM NIGHTSHIFT NURSE IN STABLE CONDITION. PT IS A/O X1, CONFUSED, AND UNABLE TO COMMUNICATE. PT OCCASIONALLY SOBS AND MUMMERS INCOMPREHENSIBLE SOUNDS. NO SOB OR SIGNS OF DISTRESS NOTED. BREATHING IS EVEN AND UNLABORED. PT IS ON ROOM AIR AND SATING WELL AT 98%. PT REMAINS AFEBRILE AT THIS TIME WITH A TEMP OF 98.1. IV PRESENT ON RIGHT AC 20G HL. NO REDNESS OR SIGNS OF INFILTRATION NOTED. IV IS PATENT TO NS FLUSH, DRY AND INTACT. .BED IN LOW LOCKED POSITION, SIDE RAILS UP X3, CALL LIGHT WITHIN REACH. WILL CONTINUE TO MONITOR.
[2017-01-08 08:00] VITALS: BP 118/79
[2017-01-08] MEDS ORDERED: BOOST PLUS FOOD-VANILLA 237 ML BOX PO SCH (09:00)
[2017-01-08] MEDS: LIOTHYRONINE SODIUM (25 MCG) 25 MCG TABLET PO SCH (09:29)
[2017-01-08] MEDS: OXYBUTYNIN CHLORIDE 5 MG TABLET PO SCH (09:29)
[2017-01-08] MEDS: LOSARTAN POTASSIUM 50 MG TABLET PO SCH (09:29)
[2017-01-08] MEDS: PANTOPRAZOLE 40 MG TABLET.DR PO SCH (09:30)
[2017-01-08] MEDS: LamoTRIgine 100 MG TABLET PO SCH (09:30)
[2017-01-08] MEDS: ASPIRIN EC 81 MG TABLET.DR PO SCH (09:30)
[2017-01-08] MEDS: CALCIUM CARB 600MG /VIT D 1 EACH TABLET PO SCH (09:30)
[2017-01-08] MEDS: OLANZAPINE 2.5 MG TABLET PO SCH (09:30)
[2017-01-08] MEDS: MULTIVITAMINS,THERAGRAN 1 UDTAB TABLET PO SCH (09:30)
[2017-01-08] MEDS: CARVEDILOL 3.125 MG TABLET PO SCH ×2 (09:31→16:45)
[2017-01-08] MEDS: ESCITALOPRAM OXALATE (10 MG) 10 MG TABLET PO SCH (09:31)
[2017-01-08] MEDS: GABAPENTIN 100 MG CAPSULE PO SCH ×3 (09:31→16:45)
--- NOTE | 2017-01-08 12:13 | NUR ---
MS RN NOTES A PSYCH CONSULT WAS ORDERED BY DR. NARANJO. DR CEDENO WAS NOTIFIED AND EVALUATED THE PT. PER DR CEDENO, "PT IS OKAY TO D/C TO [facility] ONCE MEDICALLY CLEARED." WILL NOTIFY DR. NARANJO OF DR. CEDENO'S RECOMMENDATION
[2017-01-08] MEDS: CEFTRIAXONE 1 G in IV D5W 50 ML IV SCH (12:33)
[2017-01-08] MEDS: POTASSIUM CHLORIDE 20 MEQ TAB.PRT.SR PO SCH ×2 (12:33→12:47)
[2017-01-08 16:00] VITALS: BP 116/78
[2017-01-08 16:45] VITALS: BP 116/78
[2017-01-08] MEDS ORDERED: CEPHALEXIN MONOHYDRATE 500 MG CAPSULE PO SCH (17:00)
--- NOTE | 2017-01-08 18:33 | NUR ---
MS RN D/C NOTE PT. DISCHARGED FROM UNIT IN STABLE CONDITION. MEDICALLY CLEARED BY DR. NARANJO. WAQAS D/C TO [facility]IT FOR HUGH
[2017-01-09] MEDS ORDERED: VENLAFAXINE XR 37.5 MG CAP.SR.24H PO SCH (09:00)
== END 2017-01-08 17:40 | DRG 690 ==
LOC: ER 10:49 → MED 13:32
PROVIDERS: ADMIT Internal Medicine; ATTEND Internal Medicine
DX: N39.0 Urinary tract infection, site not specified (principal); G31.09 Other frontotemporal neurocognitive disorder; G62.9 Polyneuropathy, unspecified; F02.80 Dementia in other diseases classified elsewhere, unspecified severity, without behavioral disturbance, psychotic disturbance, mood disturbance, and anxiety; F29 Unspecified psychosis not due to a substance or known physiological condition; E03.9 Hypothyroidism, unspecified; F32.9 Major depressive disorder, single episode, unspecified; I10 Essential (primary) hypertension; E86.0 Dehydration; E78.5 Hyperlipidemia, unspecified; F41.9 Anxiety disorder, unspecified; B96.89 Other specified bacterial agents as the cause of diseases classified elsewhere; Z79.899 Other long term (current) drug therapy; B96.4 Proteus (mirabilis) (morganii) as the cause of diseases classified elsewhere
CPT/HCPCS: 36415; 80048-TC; 80053-TC; 80076-TC; 80305; 81000-TC; 84443-TC; 85025-TC; 87081-TC; 87086-TC; 87186-TC; 97001-TC; A4606; G0480; J0696; J1650; J3490; J7030; J7060; Z7610

== ENCOUNTER 2017-01-08 18:28 | Inpatient (IN) | payer MEDICARE, BC ==
[~2017-01-08] VITALS: Ht 172.7 cm; Wt 71.7 kg
[~2017-01-08 18:28] MED LIST changes: -AMLO5TAB2 PO; -CITA20TA11 PO; -CYAN10009 PO; +ESCI20TA PO
--- NOTE | 2017-01-08 19:30 | NUR ---
CRUMB PACKER INITIAL NOTES RECEIVED REPORT FROM AM NURSE AFSATU, CHECKED PT SLEEPING AT THIS TIME. BREATHING EVEN AND NON-LABORED. DX OF PSYCHOSIS, GOT PT INFORMATION FROM HER PREVIOUS RECORD . SEEN BY CRISIS TEAM AND EVALUATED BY DR CEDENO AND PLACED PT ON A 5150 HOLD. GRAVELY DISABLED. PER AM NURSE PT CONFUSED, MOANING AND CRYING AT RANDOM TIMES. KEPT HER WARM AND COMFORTABLE AT ALL TIMES. WILL CONTINUE CLOSELY MONITORING GPS OVERFLOW.
[2017-01-08 21:42] VITALS: BP 121/64
[2017-01-08] MEDS ORDERED: LORAZEPAM 1 MG TABLET PO PRN (22:00)
[2017-01-08] MEDS ORDERED: ZOLPIDEM TARTRATE 5 MG TABLET PO PRN (22:00)
--- NOTE | 2017-01-09 05:00 | NUR ---
REJOGGER NOTES PT WOKE UP, OFFERED SOMETHING TO DRINK, AND EAT ,ATE APPLE SAUCE, PUDDING AND DRINK WATER WITHOUT ANY ASPIRATION NOTED. REST FOR A WHILE AND RENDERED BED BATH,APPLIED Z-GUARD TO BUTTOCKS/SACRUM AREA. COOPERATIVE AND CALMED AT THIS TIME. REPOSITION HER FOR COMFORT. NOT IN ANY ACUTE DISTRESS NOTED. KEPT HER WARM AND COMFORTABLE AT ALL TIMES. WILL CONTINUE TO MONITOR.
[2017-01-09 06:53] LABS: BILIRUBIN,TOTAL 0.2 mg/dL (0.2-1.0); CALCIUM, SERUM 7.9 mg/dL (8.5-10.1); CREATININE 0.5 mg/dL (0.6-1.3); POTASSIUM 3.7 mmol/L (3.5-5.1)
--- NOTE | 2017-01-09 07:00 | NUR ---
SHINGLE CUTTER/CLOSING NOTES PT AWAKE AND WATCHING TV, SCREAMING ONCE IN A WHILE BUT NOT COMBATIVE AND AGITATED. NO STABLE SOREN THE NIGHT AND SLEPT ALMOST 7-8 HRS. KEPT HER WARM AND COMFORTABLE AT ALL TIMES. ON SEMI FOWLERS ENDORSE TO AM NURSE FOR CONTINUITY OF CARE. SITTER AT THE BEDSIDE FOR SAFETY.
[2017-01-09 07:09] LABS: BASOPHILS % (AUTO) 0.2 % (0.0-2.0); EOSINOPHILS # (AUTO) 0.2 /CMM (0.0-0.7); EOSINOPHILS % (AUTO) 3.5 % (0.0-6.0); HEMATOCRIT 32 % (33-45); HEMOGLOBIN 10.9 g/dL (11.5-14.8); LYMPHOCYTES # (AUTO) 1.3 /CMM (0.8-4.8); LYMPHOCYTES % (AUTO) 31.2 % (20.0-44.0); MEAN CORPUSCULAR HEMOGLOBIN 31 PG (26.0-33.0); MEAN CORPUSCULAR HGB CONC 34 g/dl (31.0-36.0); MEAN CORPUSCULAR VOLUME 92 fL (82-100); MONOCYTES # (AUTO) 0.4 /CMM (0.1-1.30); MONOCYTES % (AUTO) 9.7 % (2.0-12.0); NEUTROPHILS # (AUTO) 2.3 /CMM (1.8-8.9); NEUTROPHILS % (AUTO) 55.4 % (43.0-81.0); PLATELET COUNT (AUTO) 193 /CMM (150-450); RDW COEFFICIENT OF VARIATION 15.5 (11.5-15.0); RED BLOOD CELL COUNT(AUTO) 3.51 MIL/uL (4.0-5.2); WHITE BLOOD COUNT (AUTO) 4.2 K/uL (4.3-11.0)
--- NOTE | 2017-01-09 07:35 | NUR ---
rn nOTES oN BED SLEEPING BUT EASILY AROUSABLE. NO FACIAL GRIMACING NOTED. APPEARS CALM. ON RA SATURATING AT 96% WITH NO SOB. WITH ONE ON ONE SITTER. NO COMPLAIN AT THIS TIME.
[2017-01-09 08:00] VITALS: BP 135/79
[2017-01-09] MEDS: CEPHALEXIN MONOHYDRATE 500 MG CAPSULE PO SCH ×3 (09:15→16:22)
[2017-01-09] MEDS ORDERED: CARVEDILOL 3.125 MG TABLET PO SCH (09:58)
[2017-01-09] MEDS: GABAPENTIN 100 MG CAPSULE PO SCH ×4 (09:59→21:53)
[2017-01-09] MEDS ORDERED: LIOTHYRONINE SODIUM (25 MCG) 25 MCG TABLET PO SCH (09:59)
[2017-01-09] MEDS ORDERED: ACETAMINOPHEN 325 MG TABLET PO PRN (10:00)
[2017-01-09] MEDS ORDERED: CALCIUM CARB 600MG /VIT D 1 EACH TABLET PO SCH (10:01)
[2017-01-09] MEDS: CALCIUM CARB 600MG /VIT D 1 EACH TABLET PO SCH (11:32)
[2017-01-09] MEDS: OXYBUTYNIN CHLORIDE 5 MG TABLET PO SCH ×2 (11:32→16:22)
[2017-01-09] MEDS: MULTIVITAMINS,THERAGRAN 1 UDTAB TABLET PO SCH (11:33)
[2017-01-09] MEDS: ASPIRIN EC 81 MG TABLET.DR PO SCH (11:33)
[2017-01-09] MEDS: LOSARTAN POTASSIUM 50 MG TABLET PO SCH (11:33)
[2017-01-09] MEDS: Z GUARD REMEDY 2 OZ OINT TP SCH ×2 (11:42→16:22)
[2017-01-09] MEDS: LamoTRIgine 100 MG TABLET PO SCH (12:59)
[2017-01-09] MEDS: VENLAFAXINE XR 37.5 MG CAP.SR.24H PO SCH (13:01)
--- NOTE | 2017-01-09 14:51 | NUR ---
RN Notes With order for swallow eval noted.
[2017-01-09 16:00] VITALS: BP 125/72
--- NOTE | 2017-01-09 16:45 | NUR ---
Durable power of copying machine mechanic was received from patient's Fernando Burks ([phone]), and placed in chart.
--- NOTE | 2017-01-09 16:47 | NUR ---
Initial Discharge Note: Per , patient resides at the [facility] [address] [place] [address] . Sw spoke to patient's Fernando Burks ([phone]) who stated that he would like for her to return to the [facility]. Sw spoke to Debbie from the facility who confirmed that patient can return upon discharge. Sw will help form a safe and proper discharge.
--- NOTE | 2017-01-09 18:13 | NUR ---
RN Notes Transferred to GPS Rm 215-2 via Wheelchair in stable condition. Report given to LATONIA To
--- NOTE | 2017-01-09 18:15 | NUR ---
GPS RN: PATIENT TRANSFERRED FROM [facility] (OVERFLOW). PATIENT'S CONDITION IS STABLE FOR DISCHARGE, VS STABLE. PATIENT ASSISTED TO BED, SAFETY PRECAUTIONS IN PLACE, BED IN A LOW POSITION AND LOCKED, SR UP X3 FOR SAFETY. PER REPORT, PATIENT IS NON-AMBULATORY, INCONTINENT, BEDREST, SACRAL REDNESS ONLY. Z GUARD APPLIED BY THE MS NURSE BEFORE THE TRANSFER. CONTINUE TO MONITOR THE PATIENT AND ENDORSE TO THE UPCOMING NURSE ACCORDINGLY.
--- NOTE | 2017-01-09 19:30 | NUR ---
GPS RN NOTE, RECEIVED PATIENT AWAKE AND IN BED, NO S/S OR COMPLAINTS OF PAIN AT THIS TIME. PATIENT IS DISPLAYING NO S/S OF APPARENT DISTRESS AT THIS TIME. PATIENT BREATHING IS UNLABORED WITH EQUAL RISE AND FALL OF THE CHEST. PATIENT IS ALERT AND ORIENTED X 1 ON ROOM AIR WITH A SPO2 97%. PATIENT COMPLIANT WITH MEDICATION WHEN CRUSHED, CONFUSED, ANXIOUS, COOPERATIVE, AND NEEDS REORIENTATION. PATIENT DENIES SUICIDE AND HOMICIDAL IDEATIONS AT THIS TIME. PATIENT ASSISTED WITH TURNING AND REPOSITIONING Q2HR AND PRN FOR COMFORT AND CIRCULATION. PATIENT HAS NO NEEDS AT THIS TIME. PATIENT EDUCATED ON THE USE OF THE CALL CLEMENT. PATIENT BED SIDE RAILS UP X2 FOR SAFETY, BED IS LOCKED AND LOW WILL CONTINUE TO MONITOR AND MAINTAIN SAFETY.
[2017-01-09 20:00] VITALS: BP 110/70
[2017-01-09] MEDS ORDERED: CARVEDILOL 6.25 MG TABLET ONE (21:19)
[2017-01-09] MEDS: ATORVASTATIN 10 MG TABLET PO SCH (21:53)
[2017-01-09] MEDS: DOCUSATE SODIUM 250 MG CAPSULE PO SCH (21:54)
[2017-01-09] MEDS: OLANZAPINE 5 MG TABLET PO SCH (21:54)
--- NOTE | 2017-01-09 22:00 | NUR ---
GPS RN NOTE, PATIENT WAS PRESCRIBED CARVEDILOL 3.125 MG 1 TAB PO Q12HRS @ 2100. OMNICELL DOES NOT CARRY THIS DOSE PRESCRIBED. OVERRIDE WAS PERFORMED TO OBTAIN CARVEDILOL 6.25MG 1 TAB. ORDER CHANGED TO CARVEDILOL 6.25MG GIVE 0.5 TAB PO Q12HRS ORDERED IN ORDER TO COMPLY WITH MED STOCK IN OMNICELL. GAVE CARVEDILOL 3.125MG PO Q12HRS ORDERED AND WASTED THE OTHER HALF OF THIS TAB. WILL CONTINUE TO MONITOR THIS PATIENT.
[2017-01-09] MEDS: CARVEDILOL 6.25 MG TABLET PO SCH (22:03)
[2017-01-10] MEDS: LamoTRIgine 100 MG TABLET PO SCH (08:40)
[2017-01-10] MEDS: CARVEDILOL 6.25 MG TABLET PO SCH ×2 (08:41→21:00)
[2017-01-10] MEDS: MULTIVITAMINS,THERAGRAN 1 UDTAB TABLET PO SCH (08:41)
[2017-01-10] MEDS: ASPIRIN EC 81 MG TABLET.DR PO SCH (08:41)
[2017-01-10] MEDS: VENLAFAXINE XR 37.5 MG CAP.SR.24H PO SCH (08:41)
[2017-01-10] MEDS: CALCIUM CARB 600MG /VIT D 1 EACH TABLET PO SCH (08:41)
[2017-01-10] MEDS: GABAPENTIN 100 MG CAPSULE PO SCH ×3 (08:41→21:21)
[2017-01-10] MEDS: LOSARTAN POTASSIUM 50 MG TABLET PO SCH (08:42)
[2017-01-10] MEDS: OXYBUTYNIN CHLORIDE 5 MG TABLET PO SCH ×2 (08:42→17:13)
[2017-01-10] MEDS: CEPHALEXIN MONOHYDRATE 500 MG CAPSULE PO SCH ×3 (08:42→17:13)
[2017-01-10] MEDS: Z GUARD REMEDY 2 OZ OINT TP SCH ×2 (08:43→17:14)
[2017-01-10] MEDS: OLANZAPINE 2.5 MG TABLET PO SCH (08:45)
[2017-01-10 08:59] VITALS: BP 120/69
[2017-01-10] MEDS ORDERED: ESCITALOPRAM OXALATE (10 MG) 10 MG TABLET PO SCH (09:00)
[2017-01-10] MEDS: BOOST PLUS FOOD-CHOCLATE 237 ML BOX PO SCH ×2 (14:30→17:13)
[2017-01-10 16:00] VITALS: BP 161/81
[2017-01-10] MEDS ORDERED: LACTOBACILLUS RHAMNOSUS GG 1 EACH CAP.SPRINK PO SCH (17:00)
--- NOTE | 2017-01-10 19:48 | NUR ---
gps/rn opening notes' patient in bed, awake, can make eye contact. no s/s of discomfort. Require reposition and turning, monitoring for s/s of depression. b/p at 134/74 with b/p medication at 2100 coreg 3.125 mg/o.5 tablet po. will provide care and continue to monitor.
[2017-01-10 20:00] VITALS: BP 134/74
--- NOTE | 2017-01-10 22:05 | NUR ---
gps/rn notes pulse below 60 will hold coreg 3.125 mg po at this time.
[2017-01-10] MEDS: ATORVASTATIN 10 MG TABLET PO SCH (22:24)
[2017-01-10] MEDS: DOCUSATE SODIUM 250 MG CAPSULE PO SCH (22:24)
[2017-01-10] MEDS: OLANZAPINE 5 MG TABLET PO SCH (22:26)
--- NOTE | 2017-01-11 04:50 | NUR ---
gps/rn notes patient awake and screamed, observed diaper wet, will attend to needs and give spongebath
[2017-01-11 08:00] VITALS: BP 141/79
[2017-01-11] MEDS: OLANZAPINE 2.5 MG TABLET PO SCH (08:36)
[2017-01-11] MEDS: VENLAFAXINE XR 37.5 MG CAP.SR.24H PO SCH (08:36)
[2017-01-11] MEDS: LamoTRIgine 100 MG TABLET PO SCH (08:36)
[2017-01-11] MEDS: GABAPENTIN 100 MG CAPSULE PO SCH ×3 (08:36→21:32)
[2017-01-11] MEDS: CEPHALEXIN MONOHYDRATE 500 MG CAPSULE PO SCH ×3 (08:36→16:10)
[2017-01-11] MEDS: OXYBUTYNIN CHLORIDE 5 MG TABLET PO SCH ×2 (08:37→16:10)
[2017-01-11] MEDS: CARVEDILOL 6.25 MG TABLET PO SCH ×2 (08:37→21:00)
[2017-01-11] MEDS: CALCIUM CARB 600MG /VIT D 1 EACH TABLET PO SCH (08:37)
[2017-01-11] MEDS: LOSARTAN POTASSIUM 50 MG TABLET PO SCH (08:38)
[2017-01-11] MEDS: LIOTHYRONINE SODIUM (25 MCG) 25 MCG TABLET PO SCH (08:38)
[2017-01-11] MEDS: ASPIRIN EC 81 MG TABLET.DR PO SCH (08:38)
[2017-01-11] MEDS: Z GUARD REMEDY 2 OZ OINT TP SCH ×2 (08:39→16:11)
[2017-01-11] MEDS: BOOST PLUS FOOD-CHOCLATE 237 ML BOX PO SCH ×2 (08:46→16:10)
[2017-01-11] MEDS: MULTIVITAMINS,THERAGRAN 1 UDTAB TABLET PO SCH (09:14)
[2017-01-11 16:00] VITALS: BP 121/69
[2017-01-11 20:00] VITALS: BP 103/59
[2017-01-11] MEDS: ATORVASTATIN 10 MG TABLET PO SCH (21:32)
[2017-01-11] MEDS: DOCUSATE SODIUM 250 MG CAPSULE PO SCH (21:33)
[2017-01-11] MEDS: OLANZAPINE 5 MG TABLET PO SCH (21:33)
--- NOTE | 2017-01-12 00:58 | NUR ---
Pt has been anhedonic, selectively mute mostly, fragmented, mumbling, & disoriented but compliant with care w/o any promptings.
[2017-01-12] MEDS: ASPIRIN EC 81 MG TABLET.DR PO SCH (08:13)
[2017-01-12] MEDS: OXYBUTYNIN CHLORIDE 5 MG TABLET PO SCH ×2 (08:13→16:37)
[2017-01-12] MEDS: GABAPENTIN 100 MG CAPSULE PO SCH ×3 (08:13→22:01)
[2017-01-12] MEDS: LamoTRIgine 100 MG TABLET PO SCH (08:13)
[2017-01-12] MEDS: CEPHALEXIN MONOHYDRATE 500 MG CAPSULE PO SCH ×3 (08:13→16:36)
[2017-01-12] MEDS: OLANZAPINE 2.5 MG TABLET PO SCH (08:14)
[2017-01-12] MEDS: MULTIVITAMINS,THERAGRAN 1 UDTAB TABLET PO SCH (08:14)
[2017-01-12] MEDS: VENLAFAXINE XR 37.5 MG CAP.SR.24H PO SCH (08:14)
[2017-01-12] MEDS: CARVEDILOL 6.25 MG TABLET PO SCH ×2 (08:14→21:00)
[2017-01-12] MEDS: CALCIUM CARB 600MG /VIT D 1 EACH TABLET PO SCH (08:14)
[2017-01-12] MEDS: LOSARTAN POTASSIUM 50 MG TABLET PO SCH (08:15)
[2017-01-12 08:23] VITALS: BP 146/74
[2017-01-12] MEDS: BOOST PLUS FOOD-CHOCLATE 237 ML BOX PO SCH ×2 (11:29→16:37)
[2017-01-12] MEDS: Z GUARD REMEDY 2 OZ OINT TP SCH ×2 (11:29→16:36)
[2017-01-12 16:01] VITALS: BP 113/69
[2017-01-12 19:42] VITALS: BP 102/65
[2017-01-12] MEDS: ATORVASTATIN 10 MG TABLET PO SCH (21:57)
[2017-01-12] MEDS: OLANZAPINE 5 MG TABLET PO SCH (22:01)
[2017-01-12] MEDS: DOCUSATE SODIUM 250 MG CAPSULE PO SCH (22:01)
[2017-01-13 08:00] VITALS: BP 144/84
[2017-01-13] MEDS: BOOST PLUS FOOD-CHOCLATE 237 ML BOX PO SCH ×2 (08:00→17:35)
[2017-01-13] MEDS: CALCIUM CARB 600MG /VIT D 1 EACH TABLET PO SCH (08:02)
[2017-01-13] MEDS: LIOTHYRONINE SODIUM (25 MCG) 25 MCG TABLET PO SCH (08:02)
[2017-01-13] MEDS: OXYBUTYNIN CHLORIDE 5 MG TABLET PO SCH ×2 (08:03→16:35)
[2017-01-13] MEDS: LamoTRIgine 100 MG TABLET PO SCH (08:03)
[2017-01-13] MEDS: CEPHALEXIN MONOHYDRATE 500 MG CAPSULE PO SCH ×3 (08:03→16:35)
[2017-01-13] MEDS: MULTIVITAMINS,THERAGRAN 1 UDTAB TABLET PO SCH (08:03)
[2017-01-13] MEDS: ASPIRIN EC 81 MG TABLET.DR PO SCH (08:04)
[2017-01-13] MEDS: LOSARTAN POTASSIUM 50 MG TABLET PO SCH (08:04)
[2017-01-13] MEDS: VENLAFAXINE XR 37.5 MG CAP.SR.24H PO SCH (08:04)
[2017-01-13] MEDS: Z GUARD REMEDY 2 OZ OINT TP SCH ×2 (08:27→16:43)
[2017-01-13] MEDS: GABAPENTIN 100 MG CAPSULE PO SCH ×3 (09:02→21:27)
[2017-01-13] MEDS: CARVEDILOL 6.25 MG TABLET PO SCH ×2 (09:03→21:27)
[2017-01-13] MEDS: OLANZAPINE 2.5 MG TABLET PO SCH (09:08)
--- NOTE | 2017-01-13 09:46 | NUR ---
GPS/RN BOOST IS NOT SCANNING PROPERLY, UNABLE TO SCAN AND SAVE, ADMINISTERED ORDERED, WILL NOTIFY KITCHEN.
[2017-01-13 16:00] VITALS: BP 108/69
[2017-01-13 20:26] VITALS: BP 110/63
[2017-01-13] MEDS: ATORVASTATIN 10 MG TABLET PO SCH (21:27)
[2017-01-13] MEDS: OLANZAPINE 5 MG TABLET PO SCH (21:27)
[2017-01-13] MEDS: DOCUSATE SODIUM 250 MG CAPSULE PO SCH (21:27)
[2017-01-14 08:00] VITALS: BP 118/72
[2017-01-14] MEDS: BOOST PLUS FOOD-CHOCLATE 237 ML BOX PO SCH ×2 (08:00→17:00)
[2017-01-14] MEDS: Z GUARD REMEDY 2 OZ OINT TP SCH ×2 (09:00→16:59)
[2017-01-14] MEDS: CEPHALEXIN MONOHYDRATE 500 MG CAPSULE PO SCH ×3 (10:06→16:58)
[2017-01-14] MEDS: VENLAFAXINE XR 37.5 MG CAP.SR.24H PO SCH (10:06)
[2017-01-14] MEDS: GABAPENTIN 100 MG CAPSULE PO SCH ×3 (10:06→21:29)
[2017-01-14] MEDS: CALCIUM CARB 600MG /VIT D 1 EACH TABLET PO SCH (10:07)
[2017-01-14] MEDS: LOSARTAN POTASSIUM 50 MG TABLET PO SCH (10:07)
[2017-01-14] MEDS: OLANZAPINE 2.5 MG TABLET PO SCH (10:07)
[2017-01-14] MEDS: LamoTRIgine 100 MG TABLET PO SCH (10:07)
[2017-01-14] MEDS: ASPIRIN EC 81 MG TABLET.DR PO SCH (10:07)
[2017-01-14] MEDS: MULTIVITAMINS,THERAGRAN 1 UDTAB TABLET PO SCH (10:08)
[2017-01-14] MEDS: CARVEDILOL 6.25 MG TABLET PO SCH ×2 (10:08→22:56)
[2017-01-14] MEDS: OXYBUTYNIN CHLORIDE 5 MG TABLET PO SCH ×2 (10:08→16:58)
[2017-01-14 15:59] VITALS: BP 109/64
[2017-01-14 18:58] VITALS: BP 118/72
[2017-01-14 20:30] VITALS: BP 123/77
[2017-01-14] MEDS: ATORVASTATIN 10 MG TABLET PO SCH (21:29)
[2017-01-14] MEDS: DOCUSATE SODIUM 250 MG CAPSULE PO SCH (21:29)
[2017-01-14] MEDS: OLANZAPINE 5 MG TABLET PO SCH (22:57)
[2017-01-15 08:00] VITALS: BP 144/87
[2017-01-15 08:17] LABS: BASOPHILS % (AUTO) 0.2 % (0.0-2.0); EOSINOPHILS # (AUTO) 0.2 /CMM (0.0-0.7); EOSINOPHILS % (AUTO) 3.5 % (0.0-6.0); HEMATOCRIT 37 % (33-45); HEMOGLOBIN 12.5 g/dL (11.5-14.8); LYMPHOCYTES % (AUTO) 21.8 % (20.0-44.0); MEAN CORPUSCULAR HEMOGLOBIN 31 PG (26.0-33.0); MEAN CORPUSCULAR HGB CONC 34 g/dl (31.0-36.0); MEAN CORPUSCULAR VOLUME 91 fL (82-100); MONOCYTES # (AUTO) 0.4 /CMM (0.1-1.30); MONOCYTES % (AUTO) 7.7 % (2.0-12.0); NEUTROPHILS # (AUTO) 3.2 /CMM (1.8-8.9); NEUTROPHILS % (AUTO) 66.8 % (43.0-81.0); PLATELET COUNT (AUTO) 243 /CMM (150-450); RDW COEFFICIENT OF VARIATION 15.4 (11.5-15.0); RED BLOOD CELL COUNT(AUTO) 4.03 MIL/uL (4.0-5.2); RETICULOCYTE COUNT 2.9 % (0.6-2.5); WHITE BLOOD COUNT (AUTO) 4.8 K/uL (4.3-11.0)
[2017-01-15 08:32] LABS: ALBUMIN 2.5 g/dL (3.4-5.0); BILIRUBIN,TOTAL 0.3 mg/dL (0.2-1.0); CALCIUM, SERUM 8.6 mg/dL (8.5-10.1); CREATININE 0.6 mg/dL (0.6-1.3); POTASSIUM 4.5 mmol/L (3.5-5.1); TOTAL PROTEIN, SERUM 5.8 g/dL (6.4-8.2)
[2017-01-15] MEDS: CEPHALEXIN MONOHYDRATE 500 MG CAPSULE PO SCH ×3 (09:08→17:44)
[2017-01-15] MEDS: CALCIUM CARB 600MG /VIT D 1 EACH TABLET PO SCH (09:08)
[2017-01-15] MEDS: CARVEDILOL 6.25 MG TABLET PO SCH ×2 (09:08→21:00)
[2017-01-15] MEDS: VENLAFAXINE XR 37.5 MG CAP.SR.24H PO SCH (09:08)
[2017-01-15] MEDS: LamoTRIgine 100 MG TABLET PO SCH (09:08)
[2017-01-15] MEDS: OLANZAPINE 2.5 MG TABLET PO SCH (09:08)
[2017-01-15] MEDS: GABAPENTIN 100 MG CAPSULE PO SCH ×3 (09:09→21:29)
[2017-01-15] MEDS: OXYBUTYNIN CHLORIDE 5 MG TABLET PO SCH ×2 (09:09→17:44)
[2017-01-15] MEDS: LIOTHYRONINE SODIUM (25 MCG) 25 MCG TABLET PO SCH (09:09)
[2017-01-15] MEDS: MULTIVITAMINS,THERAGRAN 1 UDTAB TABLET PO SCH (09:09)
[2017-01-15] MEDS: ASPIRIN EC 81 MG TABLET.DR PO SCH (09:09)
[2017-01-15] MEDS: LOSARTAN POTASSIUM 50 MG TABLET PO SCH (09:09)
[2017-01-15] MEDS: Z GUARD REMEDY 2 OZ OINT TP SCH ×2 (09:15→17:44)
[2017-01-15] MEDS: BOOST PLUS FOOD-CHOCLATE 237 ML BOX PO SCH ×2 (09:15→17:47)
--- NOTE | 2017-01-15 12:11 | NUR ---
Eric spoke to Khadar from [facility] [address] [place] [address] and informed him that patient is being discharged tomorrow 01/16/17. Eric spoke to patient's Fernando Burks ([phone]) to inform him that patient is being discharged tomorrow back to the facility. Patient's was agreeable with the discharge plan.
[2017-01-15 16:00] VITALS: BP 135/75
[2017-01-15 20:00] VITALS: BP 99/62
[2017-01-15] MEDS: ATORVASTATIN 10 MG TABLET PO SCH (21:30)
[2017-01-15] MEDS: DOCUSATE SODIUM 250 MG CAPSULE PO SCH (21:30)
[2017-01-15] MEDS: OLANZAPINE 5 MG TABLET PO SCH (21:30)
[2017-01-16 08:00] VITALS: BP 120/70
--- NOTE | 2017-01-16 08:29 | NUR ---
DR. CEDENO GAVE AN ORDER TO D/C HOLD AND D/C TO [facility]. PT. WITHOUT DISTRESS, DENIES SUICIDAL AND HOMICIDAL. PT. TO FOLLOW UP WITH PSYCH AND MEDICAL DOCTORS.
[2017-01-16] MEDS: VENLAFAXINE XR 37.5 MG CAP.SR.24H PO SCH (08:49)
[2017-01-16] MEDS: BOOST PLUS FOOD-CHOCLATE 237 ML BOX PO SCH (08:49)
[2017-01-16] MEDS: CALCIUM CARB 600MG /VIT D 1 EACH TABLET PO SCH (08:49)
[2017-01-16 08:50] VITALS: BP 120/70
[2017-01-16] MEDS: LOSARTAN POTASSIUM 50 MG TABLET PO SCH (08:50)
[2017-01-16] MEDS: CARVEDILOL 6.25 MG TABLET PO SCH (08:50)
[2017-01-16] MEDS: ASPIRIN EC 81 MG TABLET.DR PO SCH (08:50)
[2017-01-16] MEDS: CEPHALEXIN MONOHYDRATE 500 MG CAPSULE PO SCH ×2 (08:51→12:16)
[2017-01-16] MEDS: OLANZAPINE 2.5 MG TABLET PO SCH (08:51)
[2017-01-16] MEDS: GABAPENTIN 100 MG CAPSULE PO SCH ×2 (08:51→12:16)
[2017-01-16] MEDS: OXYBUTYNIN CHLORIDE 5 MG TABLET PO SCH (08:51)
[2017-01-16] MEDS: MULTIVITAMINS,THERAGRAN 1 UDTAB TABLET PO SCH (08:51)
[2017-01-16] MEDS: LamoTRIgine 100 MG TABLET PO SCH (08:51)
[2017-01-16] MEDS: Z GUARD REMEDY 2 OZ OINT TP SCH (08:58)
--- NOTE | 2017-01-16 13:34 | NUR ---
GPS RN: PATIENT DISCHARGED TO [facility]. PATIENT'S CONDITION IS STABLE FOR DISCHARGE, VS STABLE, NO VERBALIZATIONS OF SI/HI. ALL BELONGINGS RETURNED TO THE PATIENT, PRESCRIPTIONS [facility]ED [facility] (T:[phone]; F: [phone]). SPOKE WITH EPHRAIM, CONFIRMED THE PHARMACY WILL DELIVER MEDICATIONS. PATIENT LEFT THE UNIT ON AN GURNEY VIA [employer] RESPONSE AT 1325.
--- NOTE | 2017-01-16 13:52 | NUR ---
Discharge Note: Patient was discharged back to [facility] [address] [place] [address] . via med response. Patient's Fernando Burks ([phone]) was informed and was agreeable with the discharge plan. Patient's mood and affect were appropriate upon discharge. Patient denied suicidal and homicidal ideations. Patient was referred to [facility] [address] [place] [address] ([phone]). Facilitated info to IDT team who are in agreement with discharge arrangement. The multidisciplinary exitcare form was done, printed, signed, and given to the patient.
== END 2017-01-16 13:25 | DRG 885 ==
LOC: GPSOV 18:28 → GPS 01-09 18:07
PROVIDERS: ADMIT Psychiatry & Neurology Psychiatry; ATTEND Psychiatry & Neurology Psychiatry
DX: F32.3 Major depressive disorder, single episode, severe with psychotic features (principal); F02.81 Dementia in other diseases classified elsewhere, unspecified severity, with behavioral disturbance; N39.0 Urinary tract infection, site not specified; F29 Unspecified psychosis not due to a substance or known physiological condition; D64.9 Anemia, unspecified; E03.9 Hypothyroidism, unspecified; G31.09 Other frontotemporal neurocognitive disorder; E78.5 Hyperlipidemia, unspecified; I10 Essential (primary) hypertension; Z79.899 Other long term (current) drug therapy; Z81.8 Family history of other mental and behavioral disorders
CPT/HCPCS: 36415; 80053-TC; 80061-TC; 82746; 83540-TC; 85025-TC; 85045-TC; 92611-TC; 97001-TC

== ENCOUNTER 2017-03-08 18:45 | Emergency (ER) | payer MEDICARE, BC ==
[~2017-03-08] VITALS: Ht 165.1 cm; Wt 56.7 kg
[~2017-03-08 18:45] MED LIST changes: -LOPE2CAP PO; -LORA0.5T PO
--- NOTE | 2017-03-08 19:00 | NUR ---
BBPA FROM SNF: HEMATOMA TO BACK OF HEAD S/P UNWITNESSED FALL TODAY. NOTICED TODAY @ NOON. PT DS TO ER BED, SKIN WARM AND DRY, RR EVEN AND UNLABORED. PT GOWNED, PLACED ON WAXING MACHINE OPERATOR HELPER. AWAITING ORDERS FROM PROVIDER
[2017-03-08 19:55] LABS: ALANINE AMINOTRANSFERASE 24 U/L (12-78); ALBUMIN 3.1 g/dL (3.4-5.0); ALKALINE PHOSPHATASE 65 U/L (46-116); ASPARTATE AMINOTRANSFERASE 13 U/L (15-37); BILIRUBIN,TOTAL 0.3 mg/dL (0.2-1.0); CALCIUM, SERUM 8.3 mg/dL (8.5-10.1); CARBON DIOXIDE 22 mmol/L (21-32); CHLORIDE 110 mmol/L (98-107); CREATININE 0.8 mg/dL (0.6-1.3); GLUCOSE 120 mg/dL (74-106); POTASSIUM 4.1 mmol/L (3.5-5.1); SODIUM SERUM 142 mmol/L (136-145); TOTAL PROTEIN, SERUM 6.1 g/dL (6.4-8.2); UREA NITROGEN, BLOOD 23 mg/dL (7-18)
[2017-03-08 19:57] LABS: TROPONIN I < 0.017 ng/mL (0.00-0.056)
--- NOTE | 2017-03-08 20:00 | NUR ---
IN AND OUT MORENO CATH DONE FOR URINE SAMPLE
[2017-03-08 20:22] LABS: BASOPHILS % (AUTO) 0.3 % (0.0-2.0); EOSINOPHILS # (AUTO) 0.1 /CMM (0.0-0.7); EOSINOPHILS % (AUTO) 2.1 % (0.0-6.0); HEMATOCRIT 35 % (33-45); HEMOGLOBIN 11.4 g/dL (11.5-14.8); LYMPHOCYTES # (AUTO) 1.3 /CMM (0.8-4.8); LYMPHOCYTES % (AUTO) 17.8 % (20.0-44.0); MEAN CORPUSCULAR HEMOGLOBIN 30 PG (26.0-33.0); MEAN CORPUSCULAR HGB CONC 33 g/dl (31.0-36.0); MEAN CORPUSCULAR VOLUME 90 fL (82-100); MONOCYTES # (AUTO) 0.7 /CMM (0.1-1.30); MONOCYTES % (AUTO) 9.5 % (2.0-12.0); NEUTROPHILS # (AUTO) 5.1 /CMM (1.8-8.9); NEUTROPHILS % (AUTO) 70.3 % (43.0-81.0); PLATELET COUNT (AUTO) 252 /CMM (150-450); RDW COEFFICIENT OF VARIATION 14.6 (11.5-15.0); RED BLOOD CELL COUNT(AUTO) 3.87 MIL/uL (4.0-5.2); WHITE BLOOD COUNT (AUTO) 7.3 K/uL (4.3-11.0)
--- NOTE | 2017-03-08 20:30 | NUR ---
20G LEFT AC IV STARTED, MEDICATED PT ORDERED
[2017-03-08 20:34] LABS: APPEARANCE,URINE SL CLOUDY (CLEAR); BILIRUBIN,URINE NEGATIVE (NEGATIVE); BLOOD, URINE NEGATIVE Ery/uL (NEGATIVE); COLOR,URINE YELLOW (YELLOW); KETONES,URINE NEGATIVE (NEGATIVE); LEUKOCYTE ESTERASE ,URINE TRACE (NEGATIVE); NITRITE, URINE POSITIVE (NEGATIVE); PH,URINE 5.5 (5.0-8.0); PROTEIN,URINE NEGATIVE (NEGATIVE); UGLUCOSE NEGATIVE (NEGATIVE)
[2017-03-08 20:47] LABS: BACTERIA,URINE 3+ /HPF (None Seen); SQUAMOUS EPITHELIAL CELL,UR 0-2 /HPF (None Seen)
[2017-03-08 20:48] LABS: MUCUS,URINE Few /LPF (None Seen)
--- NOTE | 2017-03-08 21:20 | NUR ---
MEDICATED PT ORDERED
--- NOTE | 2017-03-08 21:27 | NUR ---
CALLED [facility] FOR S TRANSPORT TO [facility] ETA 2300. TRIP#[id number].
--- NOTE | 2017-03-08 21:36 | NUR ---
MEDICATED PT ORDERED
--- NOTE | 2017-03-08 23:52 | NUR ---
report given to akilah nurse for pt at [facility]. report given to emt for transffe. IV removed. Catheter intact and site benign. Pressure and 4x4 applied to site. No bleeding noted.
[2017-03-08 23:53] VITALS: BP 133/76
== END 2017-03-08 23:53 | disposition home or self-care (01) ==
LOC: ER 18:48
DX: S00.03XA Contusion of scalp, initial encounter (principal); N39.0 Urinary tract infection, site not specified; D64.9 Anemia, unspecified; E78.00 Pure hypercholesterolemia, unspecified; E86.0 Dehydration; F03.90 Unspecified dementia, unspecified severity, without behavioral disturbance, psychotic disturbance, mood disturbance, and anxiety; G93.40 Encephalopathy, unspecified; I10 Essential (primary) hypertension; I70.0 Atherosclerosis of aorta; K59.00 Constipation, unspecified; Z79.82 Long term (current) use of aspirin; Z90.49 Acquired absence of other specified parts of digestive tract; W18.30XA Fall on same level, unspecified, initial encounter; Y92.89 Other specified places as the place of occurrence of the external cause; Y93.89 Activity, other specified; Y99.8 Other external cause status
CPT/HCPCS: 36415; 70450-TC; 71010-TC; 72170-TC; 80053-TC; 81000-TC; 84484-TC; 85025-TC; 87086-TC; 87186-TC; A4606; J0696; J2930; J7030; J7040; Z7610

== ENCOUNTER 2017-04-08 12:33 | Inpatient (IN) | payer MEDICARE, BC ==
[~2017-04-08] VITALS: Ht 167.6 cm; Wt 54.4 kg
--- NOTE | 2017-04-08 12:40 | NUR ---
BB PRIVATE EMS FROM [facility] C/O REFUSING TO EAT X 2 DAYS. PATIENT IS AWAKE, HOWEVER NON VERBAL. APPEARS IN NNO APPARENT DISTRESS. RESPIRATION EVEN AND UNLABORED. SKIN IS WARM TO TOUCH AND NOND IAPHORETIC. AFEBRILE. CONNECTED PT TO TELE MONITOR. VSS
--- NOTE | 2017-04-08 12:50 | NUR ---
IV ACCESSED TO LEFT WRIST 20. BLOOD SAMPLE SENT TO LAB
[2017-04-08 12:58] LABS: BASOPHILS # (AUTO) 0.1 /CMM (0.0-0.2); BASOPHILS % (AUTO) 0.9 % (0.0-2.0); HEMATOCRIT 48 % (33-45); HEMOGLOBIN 15.6 g/dL (11.5-14.8); LYMPHOCYTES # (AUTO) 1.3 /CMM (0.8-4.8); LYMPHOCYTES % (AUTO) 11.2 % (20.0-44.0); MEAN CORPUSCULAR HEMOGLOBIN 29 PG (26.0-33.0); MEAN CORPUSCULAR HGB CONC 33 g/dl (31.0-36.0); MEAN CORPUSCULAR VOLUME 88 fL (82-100); MONOCYTES # (AUTO) 0.2 /CMM (0.1-1.30); MONOCYTES % (AUTO) 1.5 % (2.0-12.0); NEUTROPHILS % (AUTO) 86.4 % (43.0-81.0); PLATELET COUNT (AUTO) 284 /CMM (150-450); RED BLOOD CELL COUNT(AUTO) 5.47 MIL/uL (4.0-5.2); WHITE BLOOD COUNT (AUTO) 11.6 K/uL (4.3-11.0)
[2017-04-08] MEDS ORDERED: IV NS 0.9% 1,000 ML BAG IV ONE ×2 (13:00→14:30)
--- NOTE | 2017-04-08 13:00 | NUR ---
URINE SAMPLE SENT TO LAB
[2017-04-08 13:15] LABS: INR 1.16 (0.87-1.13); PROTHROMBIN TIME 12.1 SECS (9.5-12.7); TROPONIN I 0.139 ng/mL (0.00-0.056)
[2017-04-08 13:17] LABS: APPEARANCE,URINE Clear (CLEAR); BILIRUBIN,URINE SMALL (NEGATIVE); BLOOD, URINE Moderate Ery/uL (NEGATIVE); COLOR,URINE Yellow (YELLOW); KETONES,URINE 15 (NEGATIVE); LEUKOCYTE ESTERASE ,URINE Small (NEGATIVE); NITRITE, URINE Positive (NEGATIVE); PH,URINE 5.5 (5.0-8.0); PROTEIN,URINE 30 mg/dl (NEGATIVE); UGLUCOSE Negative (NEGATIVE)
--- NOTE | 2017-04-08 13:19 | NUR ---
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
[2017-04-08 13:25] LABS: BACTERIA,URINE Many /HPF (None Seen); SQUAMOUS EPITHELIAL CELL,UR Moderate /HPF (None Seen)
--- NOTE | 2017-04-08 13:26 | NUR ---
PAGED DR. NARANJO FOR PANEL
[2017-04-08] MEDS ORDERED: FLUO-120 PO (13:45)
[2017-04-08] MEDS ORDERED: OXYB5TAB11 PO (13:45)
[2017-04-08] MEDS ORDERED: LORA0.5T PO (13:45)
[2017-04-08] MEDS ORDERED: ZOLP5TAB7 PO (13:45)
[2017-04-08] MEDS ORDERED: ASPI81TA2 PO (13:45)
[2017-04-08] MEDS ORDERED: FERR-58 PO (13:45)
[2017-04-08] MEDS ORDERED: [UNRECOGNIZED DRUG - CODE] PO (13:45)
[2017-04-08] MEDS ORDERED: PANT40TA4 PO (13:45)
[2017-04-08] MEDS ORDERED: DOCU-170 PO (13:45)
[2017-04-08] MEDS ORDERED: MAGN400O6 PO (13:45)
[2017-04-08] MEDS ORDERED: ASCO500T10 PO (13:45)
[2017-04-08] MEDS ORDERED: LOSA50TA21 PO (13:45)
[2017-04-08] MEDS ORDERED: CEFTRIAXONE 1GM BAG (ER ONLY) 50 ML IV ONE ×2 (13:59→14:00)
[2017-04-08] MEDS ORDERED: ASPIRIN 81 MG TAB.CHEW ONE (13:59)
[2017-04-08] MEDS ORDERED: ASPIRIN 81 MG TAB.CHEW PO ONE (14:00)
--- NOTE | 2017-04-08 14:04 | NUR ---
CALL RECEIVED FROM [facility] CASE MANAGEMENT, NO TELE BED AVAILABLE, DR NARANJO NOTIFIED
[2017-04-08 14:06] LABS: ALBUMIN 2.8 g/dL (3.4-5.0); BILIRUBIN,DIRECT 0.3 mg/dL (0.0-0.2); BILIRUBIN,TOTAL 0.7 mg/dL (0.2-1.0); CALCIUM, SERUM 8.6 mg/dL (8.5-10.1); CREATININE 1.1 mg/dL (0.6-1.3); POTASSIUM 3.4 mmol/L (3.5-5.1); TOTAL PROTEIN, SERUM 6.1 g/dL (6.4-8.2)
--- NOTE | 2017-04-08 14:26 | NUR ---
TRIED GIVING REPORT BUT PER UNIT SEC, RECEIVING NURE IS IN ISOLATION ROOM
--- NOTE | 2017-04-08 14:33 | NUR ---
REPORT GIVEN TO LATONIA GRIMALDO FOR CONTINUITY OF CARE.
--- NOTE | 2017-04-08 15:00 | NUR ---
INSPECTION ENGINEERVETERINARIAN SMALL ANIMAL NOTE PATIENT IS ALERT AND ORIENTED x1. NON-VERBAL, RESPONDS TO NAME ONLY. CAME FROM [facility]. CALL LIGHT WITHIN REACH. SAFETY MEASURES IMPLEMENTED. NO FACIAL GRIMACING NOTED FOR PAIN. NO SOB OR DISTRESS NOTED. ON ROOM AIR WITH 99% O2 SATURATION. IV ON LEFT WRIST INTACT AND PATENT NO REDNESS OR SWELLING NOTED. PER NURSE, REFUSING TO EAT x2 AT CUSTODIAL. TELE MONITOR IN PLACE, SR AT 75. MRSA DONE. MED RECON TO BE DONE BY MD. ALL BELONGINGS ACCOUNTED FOR. AWAITING MD ORDERS. WILL CONTINUE TO MONITOR
[2017-04-08] MEDS ORDERED: MAGNESIUM CITRATE 296 ML BOTTLE PO PRN (15:30)
[2017-04-08] MEDS: IV 1/2NS 1000 ML 1,000 ML IV SCH (15:30)
[2017-04-08] MEDS ORDERED: ACETAMINOPHEN 325 MG TABLET PO PRN (15:30)
[2017-04-08] MEDS ORDERED: LORAZEPAM 0.5 MG TABLET PO PRN (15:30)
[2017-04-08] MEDS ORDERED: MAGNESIUM HYDROXIDE 30 ML UDC PO PRN (15:30)
[2017-04-08] MEDS ORDERED: ZOLPIDEM TARTRATE 5 MG TABLET PO PRN (15:30)
[2017-04-08 16:00] VITALS: BP 164/98
[2017-04-08] MEDS ORDERED: Z GUARD REMEDY 2 OZ OINT TP PRN (16:30)
[2017-04-08] MEDS: OXYBUTYNIN CHLORIDE 5 MG TABLET PO SCH (16:41)
[2017-04-08] MEDS: CARVEDILOL 3.125 MG TABLET PO SCH (16:41)
[2017-04-08] MEDS: DOCUSATE SODIUM 100 MG CAPSULE PO SCH (16:41)
[2017-04-08] MEDS: ENOXAPARIN SODIUM 80 MG/0.8 ML DISP.SYRIN SQ SCH (16:47)
--- NOTE | 2017-04-08 18:31 | NUR ---
POSTAL INSPECTOR CLOSING NOTE PATIENT IS ALERT AND ORIENTED x1. CONFUSED, NON-VERBAL. PATIENT SCREAMS OR TAPS ON RIGHT HIP. CALL LIGHT WITHIN REACH AT ALL TIMES. SAFETY MEASURES IMPLEMENTED. ALL DUE MEDICATIONS GIVEN ORDERED. ALL NURSING CARE NEEDS IMPLEMENTED. IV ON LEFT WRIST INTACT AND PATENT NO REDNESS OR SWELLING NOTED. IV FLUIDS RUNNING AT THIS TIME. 0.45 NS AT 80 ML/HR TOLERATING WELL. MED RECON DONE, ALL MD ORDERS NOTED AND CARRIED OUT. HAS RIGHT KNEE BRUISE AND SCRATCH, PICTURE DOCUMENTED. MD AWARE ABOUT SODIUM AND POTASSIUM LEVELS, NO NEW ORDERS AT THIS TIME. WILL ENDORSE TO AMMUNITION STOREKEEPER FOR HUGH
--- NOTE | 2017-04-08 19:30 | NUR ---
RN NOTES PATIENT IS ALERT AND ORIENTED x1. VS STABLE. NO C/O PAIN AT THIS TIME. RESPIRATIONS EVEN AND UNLABORED. NO RESPIRATORY DISTRESS NOTED. PATIENT SCREAMS OR TAPS ON RIGHT HIP. IV ACCESS ON L WRIST PATENT AND INTACT. INFUSING NS 80 ML/HR. NO REDNESS OR INFILTRATION NOTED. MD AWARE ABOUT SODIUM AND POTASSIUM LEVELS, NO NEW ORDERS AT THIS TIME. BED IN LOW POSITION. SIDE RAILSX2. CALL LIGHT WITHIN EASY REACH. CONTINUE TO MONITOR.
[2017-04-08 20:00] VITALS: BP 127/87
[2017-04-09] VITALS: BP 137/86
[2017-04-09 04:00] VITALS: BP 151/88
[2017-04-09] MEDS: ENOXAPARIN SODIUM 80 MG/0.8 ML DISP.SYRIN SQ SCH (04:09)
[2017-04-09] MEDS: IV 1/2NS 1000 ML 1,000 ML IV SCH (04:09)
--- NOTE | 2017-04-09 06:47 | NUR ---
RN CLOSING NOTES PATIENT SLEEPING IN BED. VS STABLE. NO C/O PAIN AT THIS TIME. RESPIRATIONS EVEN AND UNLABORED. NO RESPIRATORY DISTRESS NOTED. IV ACCESS ON L WRIST PATENT AND INTACT. INFUSING NS 80 ML/HR. NO REDNESS OR INFILTRATION NOTED. BED IN LOW POSITION. SIDE RAILSX3. CALL LIGHT WITHIN EASY REACH. WILL ENDORSE TO RN DAY SHIFT FOR CONTINUITY OF CARE.
[2017-04-09 06:50] LABS: BASOPHILS % (AUTO) 0.3 % (0.0-2.0); HEMATOCRIT 45 % (33-45); HEMOGLOBIN 14.8 g/dL (11.5-14.8); LYMPHOCYTES # (AUTO) 1.5 /CMM (0.8-4.8); MEAN CORPUSCULAR HEMOGLOBIN 29 PG (26.0-33.0); MEAN CORPUSCULAR HGB CONC 33 g/dl (31.0-36.0); MEAN CORPUSCULAR VOLUME 88 fL (82-100); MONOCYTES # (AUTO) 0.3 /CMM (0.1-1.30); MONOCYTES % (AUTO) 3.5 % (2.0-12.0); NEUTROPHILS # (AUTO) 7.9 /CMM (1.8-8.9); NEUTROPHILS % (AUTO) 81.2 % (43.0-81.0); PLATELET COUNT (AUTO) 220 /CMM (150-450); RED BLOOD CELL COUNT(AUTO) 5.09 MIL/uL (4.0-5.2); WHITE BLOOD COUNT (AUTO) 9.7 K/uL (4.3-11.0)
--- NOTE | 2017-04-09 07:05 | NUR ---
LOSS PREVENTION LEAD OPENING NOTES RECEIVED PT FROM NIGHTSHIFT NURSE IN STABLE CONDITION. PT IS A/O X1 AND CONFUSED. NO SOB OR SIGNS OF DISTRESS NOTED. BREATHING IS EVEN AND UNLABORED. PT IS SR ON THE TELE MONITOR WITH A HR OF 73. IV NOTED ON LEFT WRIST 20G INFUSING 1/2 NS @ 80ML/HR. PT IS TOLERATING INFUSION WELL. NO REDNESS OR SIGNS OF INFILTRATION NOTED. BED IN LOW LOCKED POSITION, SIDE RAILS UP X3, BED ALARM ON, CALL LIGHT WITHIN REACH. WILL CONTINUE TO MONITOR.
[2017-04-09 07:12] LABS: ALBUMIN 2.7 g/dL (3.4-5.0); BILIRUBIN,TOTAL 0.5 mg/dL (0.2-1.0); CALCIUM, SERUM 8.2 mg/dL (8.5-10.1); CREATININE 0.8 mg/dL (0.6-1.3); MAGNESIUM 2.5 mg/dL (1.8-2.4); TOTAL PROTEIN, SERUM 5.6 g/dL (6.4-8.2)
[2017-04-09 07:15] LABS: TROPONIN I 0.188 ng/mL (0.00-0.056)
[2017-04-09 07:21] LABS: POTASSIUM 2.7 mmol/L (3.5-5.1)
[2017-04-09] MEDS ORDERED: POTASSIUM CHLORIDE 10 MEQ/50 ML PREMIXED IVPB FOR PERIPHERAL LINE IV ONE (07:30)
[2017-04-09 07:35] LABS: THYROID STIMULATING HORMONE 1.813 uIU/mL (0.358-3.74)
--- NOTE | 2017-04-09 07:42 | NUR ---
PROCESS CAMERA OPERATOR NOTES DR. NARANJO NOTIFIED OF PT'S K+ LEVEL OF 2.7 AND NA+ OF 160. WILL AWAIT FOR ORDERS
--- NOTE | 2017-04-09 07:48 | NUR ---
CONTROL PANEL TESTER NOTES DR. NARANJO ORDERED 40MEQ OF K+ VIA IV INFUSION. PT HAS A 0900 SCHEDULED DOSE OF K+ 40MEQ WELL. DR NARANJO WAS QUESTIONED ABOUT THIS AND STATED THAT HE WILL D/C THE SCHEDULED DOSE.
[2017-04-09 08:11] VITALS: BP 148/99
[2017-04-09] MEDS: ENOXAPARIN SODIUM 40 MG/0.4 ML DISP.SYRIN SQ SCH (08:55)
[2017-04-09] MEDS: FLUOXETINE HCL 20 MG CAPSULE PO SCH (08:59)
[2017-04-09] MEDS: LIOTHYRONINE SODIUM (25 MCG) 25 MCG TABLET PO SCH (08:59)
[2017-04-09] MEDS: OXYBUTYNIN CHLORIDE 5 MG TABLET PO SCH ×2 (08:59→17:03)
[2017-04-09] MEDS: DOCUSATE SODIUM 100 MG CAPSULE PO SCH ×2 (08:59→17:03)
[2017-04-09] MEDS: ASCORBIC ACID 500 MG TABLET PO SCH (08:59)
[2017-04-09] MEDS: MULTIVITAMINS,THERAGRAN 1 UDTAB TABLET PO SCH (08:59)
[2017-04-09] MEDS: PANTOPRAZOLE 40 MG TABLET.DR PO SCH (08:59)
[2017-04-09] MEDS ORDERED: POTASSIUM CHLORIDE 20 MEQ TAB.PRT.SR PO SCH (09:00)
[2017-04-09] MEDS ORDERED: POTASSIUM CHLORIDE 20 MEQ TAB.PRT.SR PO ONE (09:00)
[2017-04-09] MEDS: CARVEDILOL 3.125 MG TABLET PO SCH ×2 (09:00→17:03)
[2017-04-09] MEDS ORDERED: ASPIRIN 81 MG TAB.CHEW PO SCH (09:00)
[2017-04-09] MEDS: LOSARTAN POTASSIUM 50 MG TABLET PO SCH (09:00)
[2017-04-09] MEDS: Potassium Chloride 20 MEQ in IV D5W 1,000 ML IV SCH (09:31)
[2017-04-09] MEDS: CEFTRIAXONE 1 G in IV D5W 50 ML IV SCH (13:43)
[2017-04-09] MEDS ORDERED: BOOST PLUS FOOD-VANILLA 237 ML BOX PO SCH (14:57)
[2017-04-09] MEDS: LORAZEPAM INJ 2 MG/ML VIAL IV PRN ×2 (15:30→21:45)
[2017-04-09 16:00] VITALS: BP 133/95
--- NOTE | 2017-04-09 18:16 | NUR ---
MS RN CLOSING NOTES PT REMAINS STABLE. ALL NEEDS WERE MET DURING SHIFT AND ORDERS CARRIED OUT ACCORDINGLY. ALL DUE MEDS GIVEN. PT WAS TESTED POSITIVE FOR MRSA OF THE NARES. CONTACT ISOLATION PRECAUTIONS INITIATED. SHE WAS TURNED AND REPOSITIONED Q2HRS, KEPT CLEAN AND DRY. SKIN CARE RENDERED. ALL SAFETY PRECAUTIONS REMAIN IN PLACE. WILL ENDORSE TO NIGHTSHIFT NURSE FOR HUGH
[2017-04-09 20:33] VITALS: BP 131/65
[2017-04-09] MEDS: MUPIROCIN OINT 2% 22 GM TUBE SCH (21:06)
[2017-04-10] MEDS: Potassium Chloride 20 MEQ in IV D5W 1,000 ML IV SCH ×2 (01:30→16:42)
--- NOTE | 2017-04-10 06:33 | NUR ---
MS RN NOTES AWAKE & ALERT. SCREAMS AT TIMES. NOT IN ANY DISTRESS. NO SOB NOTED. DENIES ANY PAIN OR DISCOMFORT AT THIS TIME. WITH IVF INFUSING WELL. AM CARE DONE. MONITORED ACCORDINGLY. CALL LIGHT WITHIN REACH. BED IN LOWEST POSITION. SR UP X 3 WITH BED ALARM ON FOR SAFETY. WILL ENDORSE TO NEXT SHIFT.
[2017-04-10] MEDS: ENOXAPARIN SODIUM 40 MG/0.4 ML DISP.SYRIN SQ SCH (06:46)
[2017-04-10 07:48] LABS: BASOPHILS % (AUTO) 0.1 % (0.0-2.0); EOSINOPHILS # (AUTO) 0.1 /CMM (0.0-0.7); EOSINOPHILS % (AUTO) 1.2 % (0.0-6.0); HEMATOCRIT 40 % (33-45); HEMOGLOBIN 13.5 g/dL (11.5-14.8); LYMPHOCYTES # (AUTO) 1.9 /CMM (0.8-4.8); LYMPHOCYTES % (AUTO) 20.4 % (20.0-44.0); MEAN CORPUSCULAR HEMOGLOBIN 30 PG (26.0-33.0); MEAN CORPUSCULAR HGB CONC 33 g/dl (31.0-36.0); MEAN CORPUSCULAR VOLUME 88 fL (82-100); MONOCYTES # (AUTO) 0.5 /CMM (0.1-1.30); MONOCYTES % (AUTO) 5.1 % (2.0-12.0); NEUTROPHILS # (AUTO) 6.8 /CMM (1.8-8.9); NEUTROPHILS % (AUTO) 73.2 % (43.0-81.0); PLATELET COUNT (AUTO) 199 /CMM (150-450); RED BLOOD CELL COUNT(AUTO) 4.57 MIL/uL (4.0-5.2); WHITE BLOOD COUNT (AUTO) 9.2 K/uL (4.3-11.0)
--- NOTE | 2017-04-10 07:57 | NUR ---
MS/RN OPENING NOTE PATIENT RECEIVED IN BED IN STABLE CONDITION. A/O X 1 WITH EPISODES OF CONFUSION. NO SIGNS OF ACUTE DISTRESS. NO COMPLAIN OF PAIN OR DISCOMFORT. ALL NEEDS ATTENDED TO. CALL LIGHT WITHIN REACH. WILL CONTINUE TO MONITOR TO ENSURES SAFETY.
[2017-04-10 08:00] VITALS: BP 136/97
[2017-04-10 08:08] LABS: CALCIUM, SERUM 7.4 mg/dL (8.5-10.1); CREATININE 0.7 mg/dL (0.6-1.3); POTASSIUM 3.4 mmol/L (3.5-5.1)
[2017-04-10] MEDS ORDERED: MUPIROCIN OINT 2% 22 GM TUBE SCH (09:00)
--- NOTE | 2017-04-10 09:04 | NUR ---
MS/RN CRITICAL TROPONIN RECEIVED CALL FROM LAB FROM [facility] AND WAS NOTIFIED REGARDING PATIENT'S CRITICAL TROPONIN OF 1.[address] RODRIGUEZ ON FLOOR MADE AWARE.
[2017-04-10] MEDS: LOSARTAN POTASSIUM 50 MG TABLET PO SCH (09:13)
[2017-04-10] MEDS: LIOTHYRONINE SODIUM (25 MCG) 25 MCG TABLET PO SCH (09:13)
[2017-04-10] MEDS: OXYBUTYNIN CHLORIDE 5 MG TABLET PO SCH ×2 (09:14→17:02)
[2017-04-10] MEDS: ASCORBIC ACID 500 MG TABLET PO SCH (09:14)
[2017-04-10] MEDS: MULTIVITAMINS,THERAGRAN 1 UDTAB TABLET PO SCH (09:14)
[2017-04-10] MEDS: PANTOPRAZOLE 40 MG TABLET.DR PO SCH (09:14)
[2017-04-10] MEDS: CARVEDILOL 3.125 MG TABLET PO SCH ×2 (09:14→17:03)
[2017-04-10] MEDS: FLUOXETINE HCL 20 MG CAPSULE PO SCH (09:14)
[2017-04-10] MEDS: DOCUSATE SODIUM 100 MG CAPSULE PO SCH ×2 (09:14→17:02)
[2017-04-10] MEDS: MUPIROCIN OINT 2% 22 GM TUBE SCH ×2 (09:25→21:15)
[2017-04-10] MEDS ORDERED: Potassium Chloride 20 MEQ in IV D5W 1,000 ML IV PRN (13:37)
[2017-04-10] MEDS: CEFTRIAXONE 1 G in IV D5W 50 ML IV SCH (13:45)
[2017-04-10 16:00] VITALS: BP 133/86
[2017-04-10] MEDS: RIVAROXABAN 10 MG TABLET PO SCH (17:01)
--- NOTE | 2017-04-10 18:32 | NUR ---
MS/RN CLOSING NOTE PATIENT IN BED IN STABLE CONDITION. A/O X 1. NO SIGNS OF ACUTE DISTRESS. NO COMPLAIN OF PAIN OR DISCOMFORT. ALL NEEDS ATTENDED TO. CALL LIGHT WITHIN REACH. WILL ENDORSE TO NEXT SHIFT FOR CONTINUITY OF CARE.
[2017-04-10 20:00] VITALS: BP 128/92
[2017-04-10 20:56] VITALS: BP 128/92
--- NOTE | 2017-04-10 21:00 | NUR ---
A/a, but nit oriented ,just screams out loud. But no distress noted, will continue to turn every 2 hrs and keep clean and dry.
--- NOTE | 2017-04-11 05:56 | NUR ---
Slept most of the night, turned and kept clean and dry.
[2017-04-11 06:46] LABS: BASOPHILS % (AUTO) 0.1 % (0.0-2.0); EOSINOPHILS # (AUTO) 0.1 /CMM (0.0-0.7); EOSINOPHILS % (AUTO) 1.5 % (0.0-6.0); HEMATOCRIT 42 % (33-45); HEMOGLOBIN 13.7 g/dL (11.5-14.8); LYMPHOCYTES % (AUTO) 24.1 % (20.0-44.0); MEAN CORPUSCULAR HEMOGLOBIN 29 PG (26.0-33.0); MEAN CORPUSCULAR HGB CONC 32 g/dl (31.0-36.0); MEAN CORPUSCULAR VOLUME 88 fL (82-100); MONOCYTES # (AUTO) 0.5 /CMM (0.1-1.30); MONOCYTES % (AUTO) 5.9 % (2.0-12.0); NEUTROPHILS # (AUTO) 5.6 /CMM (1.8-8.9); NEUTROPHILS % (AUTO) 68.4 % (43.0-81.0); PLATELET COUNT (AUTO) 179 /CMM (150-450); RED BLOOD CELL COUNT(AUTO) 4.79 MIL/uL (4.0-5.2); WHITE BLOOD COUNT (AUTO) 8.2 K/uL (4.3-11.0)
[2017-04-11 06:51] LABS: ALBUMIN 2.2 g/dL (3.4-5.0); BILIRUBIN,TOTAL 0.4 mg/dL (0.2-1.0); CALCIUM, SERUM 7.7 mg/dL (8.5-10.1); CREATININE 0.5 mg/dL (0.6-1.3); MAGNESIUM 1.9 mg/dL (1.8-2.4); PHOSPHORUS 1.9 mg/dL (2.5-4.9); POTASSIUM 3.1 mmol/L (3.5-5.1); TOTAL PROTEIN, SERUM 4.9 g/dL (6.4-8.2)
[2017-04-11 07:36] LABS: TROPONIN I 1.377 ng/mL (0.00-0.056)
[2017-04-11 08:00] VITALS: BP 135/100
--- NOTE | 2017-04-11 08:20 | NUR ---
RN MS NOTES PT RESTING IN BED. PT NONVERBAL, NO APPARENT S/S OF PAIN OR DISTRESS. WILL CONTINUE TO MONITOR. CALL LIGHT WITHIN REACH.
--- NOTE | 2017-04-11 08:36 | NUR ---
RN MS NOTES RECEIVED ABNORMAL LAB RESULT FROM LAB, DR. MARCELLA MELÉNDEZ.
--- NOTE | 2017-04-11 09:12 | NUR ---
RN MS NOTES DR. RODRIGUEZ INFORMED OF ELEVATED TROPONIN LEVEL, ORDERS GIVEN.
[2017-04-11] MEDS ORDERED: POTASSIUM PHOSPHATE MM 15 MMOL in IV D5W 250 ML IV SCH (09:30)
[2017-04-11] MEDS: ASCORBIC ACID 500 MG TABLET PO SCH (09:43)
[2017-04-11] MEDS: LIOTHYRONINE SODIUM (25 MCG) 25 MCG TABLET PO SCH (09:43)
[2017-04-11] MEDS: DOCUSATE SODIUM 100 MG CAPSULE PO SCH ×2 (09:43→16:13)
[2017-04-11] MEDS: PANTOPRAZOLE 40 MG TABLET.DR PO SCH (09:43)
[2017-04-11] MEDS: MUPIROCIN OINT 2% 22 GM TUBE SCH ×2 (09:43→21:28)
[2017-04-11] MEDS: FLUOXETINE HCL 20 MG CAPSULE PO SCH (09:43)
[2017-04-11] MEDS: OXYBUTYNIN CHLORIDE 5 MG TABLET PO SCH ×2 (09:43→16:13)
[2017-04-11] MEDS: MULTIVITAMINS,THERAGRAN 1 UDTAB TABLET PO SCH (09:46)
[2017-04-11] MEDS: POTASSIUM PHOSPHATE MM 7.5 MMOL in IV D5W 100 ML IV SCH ×2 (11:06→15:18)
[2017-04-11] MEDS: Potassium Chloride 20 MEQ in IV D5W 1,000 ML IV SCH (14:08)
[2017-04-11] MEDS: CEFTRIAXONE 1 G in IV D5W 50 ML IV SCH (14:08)
[2017-04-11 16:00] VITALS: BP 118/80
[2017-04-11] MEDS: POTASSIUM CHLORIDE 20 MEQ TAB.PRT.SR PO SCH (16:12)
[2017-04-11] MEDS: RIVAROXABAN 10 MG TABLET PO SCH (16:15)
[2017-04-11] MEDS: CARVEDILOL 3.125 MG TABLET PO SCH (16:27)
--- NOTE | 2017-04-11 18:07 | NUR ---
RN CLOSING NOTES PT RESTING IN BED. PT NONVERBAL, NO APPARENT S/S OF PAIN OR DISCOMFORT. KEPT PT COMFORTABLE AND CALM. REPLACED POTASSIUM PER ORDERS. CALL LIGHT WITHIN REACH.
--- NOTE | 2017-04-11 19:30 | NUR ---
MS/RN RECEIVE PATIENT AWAKE, PASSIVE AFFECT, NON VERBALLY RESPONSIVE, APPEAR COMFORTABLE, NO SIGNS OF DISTRESS NOTED, CALL LIGHT IN REACH. WILL MONITOR.
[2017-04-11 20:00] VITALS: BP 98/67
--- NOTE | 2017-04-12 01:08 | NUR ---
MS/RN SLEEPING AT THIS TIME, AROUSABLE, APPEAR COMFORTABLE, NO DISTRESS NOTED, CALL LIGHT IN REACH WILL CONTINUE TO MONITOR.
--- NOTE | 2017-04-12 06:34 | NUR ---
MS/RN PATIENT STILL SLEEPING AT THIS TIME, APPEAR COMFORTABLE, BREATHING EVEN AND UNLABORED, NO DISTRESS NOTED, ALL NEEDS ATTENDED AT THIS TIME. WILL CONTINUE TO MONITOR.
[2017-04-12 07:09] LABS: ALBUMIN 2.1 g/dL (3.4-5.0); BILIRUBIN,TOTAL 0.4 mg/dL (0.2-1.0); CALCIUM, SERUM 7.8 mg/dL (8.5-10.1); CREATININE 0.4 mg/dL (0.6-1.3); MAGNESIUM 1.9 mg/dL (1.8-2.4); PHOSPHORUS 2.6 mg/dL (2.5-4.9); POTASSIUM 3.8 mmol/L (3.5-5.1); TOTAL PROTEIN, SERUM 4.9 g/dL (6.4-8.2)
--- NOTE | 2017-04-12 07:30 | NUR ---
RN MS NOTES PT IN BED, AWAKE, NON VERBAL, NO FACIAL GRIMACING, NOT IN DISTRESS, CALL LIGHT WITHIN REACH, ISOLATION PRECAUTIONS OBSERVED, KEPT ON LOW BED, BED ALARM ON.
[2017-04-12 08:00] VITALS: BP 135/88
[2017-04-12 08:14] LABS: TROPONIN I 0.717 ng/mL (0.00-0.056)
[2017-04-12 08:30] VITALS: BP 120/90
[2017-04-12] MEDS: LOSARTAN POTASSIUM 50 MG TABLET PO SCH (09:00)
[2017-04-12] MEDS: CARVEDILOL 3.125 MG TABLET PO SCH ×2 (09:00→16:40)
[2017-04-12 10:30] VITALS: BP 116/82
[2017-04-12] MEDS: MULTIVITAMINS,THERAGRAN 1 UDTAB TABLET PO SCH (10:32)
[2017-04-12] MEDS: FLUOXETINE HCL 20 MG CAPSULE PO SCH (10:32)
[2017-04-12] MEDS: OXYBUTYNIN CHLORIDE 5 MG TABLET PO SCH ×2 (10:33→16:39)
[2017-04-12] MEDS: POTASSIUM CHLORIDE 20 MEQ TAB.PRT.SR PO SCH (10:33)
[2017-04-12] MEDS: DOCUSATE SODIUM 100 MG CAPSULE PO SCH ×2 (10:33→16:39)
[2017-04-12] MEDS: ASCORBIC ACID 500 MG TABLET PO SCH (10:33)
[2017-04-12] MEDS: PANTOPRAZOLE 40 MG TABLET.DR PO SCH (10:33)
[2017-04-12] MEDS: MUPIROCIN OINT 2% 22 GM TUBE SCH ×2 (10:34→22:07)
[2017-04-12] MEDS: LIOTHYRONINE SODIUM (25 MCG) 25 MCG TABLET PO SCH (10:36)
--- NOTE | 2017-04-12 13:00 | NUR ---
RN MS NOTES PT IN BED, AWAKE, NO SIGN OF PAIN OR DISTRESS, RESPIRATIONS NORMAL AND NOT LABORED, SEEN BY DR. RODRIGUEZ, KEPT CLEAN AND DRY, TURNED AND REPOSITIONED Q2 HRS.
[2017-04-12] MEDS: CEFTRIAXONE 1 G in IV D5W 50 ML IV SCH (15:20)
[2017-04-12 16:00] VITALS: BP 125/85
[2017-04-12] MEDS: RIVAROXABAN 10 MG TABLET PO SCH (16:41)
[2017-04-12] MEDS: BOOST PLUS FOOD-CHOCLATE 237 ML BOX PO SCH (17:00)
--- NOTE | 2017-04-12 19:00 | NUR ---
RN MS NOTES PT IN BED, AWAKE, ALERT TO SELF, WITH CONFUSION, NO SIGN OF PAIN, NOT IN DISTRESS, PM CARE RENDERED, ASSISTED WITH MEALS, SEEN BU DR. NARANJO, ALL NEEDS ATTENDED.
--- NOTE | 2017-04-12 19:30 | NUR ---
MS RN INITIAL NOTES PT IS IN BED RESTING, NONVERBAL BUT ALERT. NO SIGNS OF SOB OR DISTRESS. BREATHING EVENLY AND UNLABORED ON ROOM AIR. IV ACCESS IS INTACT. MRSA ISOLATION IN PLACE. BED IS IN LOW AND LOCKED POSITION. WILL CONTINUE TO MONITOR PT
[2017-04-12 20:00] VITALS: BP 129/89
[2017-04-12] MEDS ORDERED: OLANZAPINE 10 MG TABLET PO SCH (22:00)
[2017-04-12] MEDS: OLANZAPINE 10 MG TABLET PO SCH (22:25)
--- NOTE | 2017-04-13 06:18 | NUR ---
MS RN CLOSING NOTES PT IS IN BED RESTING. NO SIGNS OF SOB OR DISTRESS. BREATHING EVENLY AND UNLABORED ON RA. ALL NEEDS WERE ANTICIPATED AND MET. BED IS IN LOW AND LOCKED POSITION. WILL ENDORSE TO DAY SHIFT
--- NOTE | 2017-04-13 07:30 | NUR ---
MS RN RECEIVED ON BED, AWAKE,NONVERBAL PATIENT,LUNGS CLEAR,ABDOMEN SOFT,POSITIVE BOWEL SOUNDS, NO S/S OF PAIN AT THIS TIME,ALL NEEDS ATTENDED.
[2017-04-13 08:00] VITALS: BP 139/69
--- NOTE | 2017-04-13 08:23 | NUR ---
MS RN WAS SEEN BY DR. MICHAEL Barbosa/ KIERSTEN MADE AND CARRIED OUT.
[2017-04-13 09:24] LABS: CALCIUM, SERUM 8.4 mg/dL (8.5-10.1); CREATININE 0.5 mg/dL (0.6-1.3)
[2017-04-13 09:29] LABS: ALBUMIN 2.3 g/dL (3.4-5.0); BILIRUBIN,TOTAL 0.3 mg/dL (0.2-1.0); MAGNESIUM 2.1 mg/dL (1.8-2.4); PHOSPHORUS 2.6 mg/dL (2.5-4.9); TOTAL PROTEIN, SERUM 5.4 g/dL (6.4-8.2)
[2017-04-13] MEDS: CARVEDILOL 3.125 MG TABLET PO SCH ×2 (09:43→17:10)
[2017-04-13] MEDS: MULTIVITAMINS,THERAGRAN 1 UDTAB TABLET PO SCH (09:43)
[2017-04-13] MEDS: PANTOPRAZOLE 40 MG TABLET.DR PO SCH (09:43)
[2017-04-13] MEDS: OXYBUTYNIN CHLORIDE 5 MG TABLET PO SCH ×2 (09:43→17:09)
[2017-04-13] MEDS: LIOTHYRONINE SODIUM (25 MCG) 25 MCG TABLET PO SCH (09:43)
[2017-04-13] MEDS: ASCORBIC ACID 500 MG TABLET PO SCH (09:43)
[2017-04-13] MEDS: DOCUSATE SODIUM 100 MG CAPSULE PO SCH ×2 (09:44→17:09)
[2017-04-13] MEDS: FLUOXETINE HCL 20 MG CAPSULE PO SCH (09:44)
[2017-04-13] MEDS: LOSARTAN POTASSIUM 50 MG TABLET PO SCH (09:45)
[2017-04-13] MEDS: OLANZAPINE 2.5 MG TABLET PO SCH (09:45)
[2017-04-13] MEDS: MUPIROCIN OINT 2% 22 GM TUBE SCH ×2 (09:47→21:09)
[2017-04-13] MEDS: BOOST PLUS FOOD-CHOCLATE 237 ML BOX PO SCH ×3 (09:49→17:00)
[2017-04-13] MEDS: LamoTRIgine 100 MG TABLET PO SCH (09:52)
[2017-04-13] MEDS: CEFTRIAXONE 1 G in IV D5W 50 ML IV SCH (14:37)
[2017-04-13 16:00] VITALS: BP 120/71
--- NOTE | 2017-04-13 16:00 | NUR ---
MS COMPOSING MACHINE OPERATOR/TENDER CALLED, PATIENT WILL BE TRANSFERRED TOMORROW NOT TONIGHT.
[2017-04-13] MEDS: RIVAROXABAN 10 MG TABLET PO SCH (17:11)
--- NOTE | 2017-04-13 18:30 | NUR ---
MS RN WAS SEEN BY DR. NARANJO, NO ORDERS MADE AND CARRIED OUT.
--- NOTE | 2017-04-13 19:30 | NUR ---
MS RN INITIAL NOTES PT IS IN BED SLEEPING, NONVERBAL EASILY AROUSED. NO SIGNS OF SOB OR DISTRESS. BREATHING EVENLY AND UNLABORED ON ROOM AIR. IV ACCESS IS INTACT. MRSA ISOLATION IN PLACE. BED IS IN LOW AND LOCKED POSITION. WILL CONTINUE TO MONITOR PT
[2017-04-13 20:00] VITALS: BP 117/92
[2017-04-13] MEDS: OLANZAPINE 10 MG TABLET PO SCH (21:09)
--- NOTE | 2017-04-14 06:13 | NUR ---
MS RN CLOSING NOTES PT IS IN BED RESTING. NO SIGNS OF SOB OR DISTRESS. BREATHING EVENLY AND UNLABORED ON RA. EXIT CARE WAS STARTED, PLANNED DC FOR 1300 TODAY PER CASE MANAGEMENT. ALL NEEDS WERE ANTICIPATED AND MET. BED IS IN LOW AND LOCKED POSITION. WILL ENDORSE TO DAY SHIFT
--- NOTE | 2017-04-14 07:05 | NUR ---
MS LINCOLN Initial notes Received pt alert, awake, verbally responsive, on room air, no SOB no apparent distress noted, denies any pain or discomfort . IV sites left hand and right FA intact, patent. On NS @ 100ml/hr. Will monitor accordingly. Addendum: 04/14/17 at 0753 by CINDY EMERY RN MS LINCOLN initial notes Initial notes above was for another patient Received pt in bed, asleep on room air, no SOB no apparent distress noted.IV site Lt arm intact, patent. Kept clean and comfortable.Call light within reach. Will continue to monitor accordingly.
[2017-04-14 08:00] VITALS: BP 122/85
[2017-04-14] MEDS: OLANZAPINE 2.5 MG TABLET PO SCH (08:32)
[2017-04-14] MEDS: OXYBUTYNIN CHLORIDE 5 MG TABLET PO SCH (08:32)
[2017-04-14] MEDS: LIOTHYRONINE SODIUM (25 MCG) 25 MCG TABLET PO SCH (08:32)
[2017-04-14] MEDS: FLUOXETINE HCL 20 MG CAPSULE PO SCH (08:32)
[2017-04-14] MEDS: DOCUSATE SODIUM 100 MG CAPSULE PO SCH (08:33)
[2017-04-14] MEDS: LamoTRIgine 100 MG TABLET PO SCH (08:33)
[2017-04-14] MEDS: ASCORBIC ACID 500 MG TABLET PO SCH (08:33)
[2017-04-14] MEDS: LOSARTAN POTASSIUM 50 MG TABLET PO SCH (08:34)
[2017-04-14 08:36] VITALS: BP 122/85
[2017-04-14] MEDS: CARVEDILOL 3.125 MG TABLET PO SCH (08:36)
[2017-04-14] MEDS: PANTOPRAZOLE 40 MG TABLET.DR PO SCH (08:37)
[2017-04-14] MEDS: MULTIVITAMINS,THERAGRAN 1 UDTAB TABLET PO SCH (08:37)
[2017-04-14] MEDS: MUPIROCIN OINT 2% 22 GM TUBE SCH (08:39)
[2017-04-14] MEDS: BOOST PLUS FOOD-CHOCLATE 237 ML BOX PO SCH ×2 (12:20→12:39)
[2017-04-14] MEDS: CEFTRIAXONE 1 G in IV D5W 50 ML IV SCH (14:20)
--- NOTE | 2017-04-14 16:00 | NUR ---
ms return agent notes Discharge instructions given to and able to understand instructions. 2 nurses signed discharge paper and belonging list. Report called and spoke to Estevan and update given. No sob or distress noted on the patient, on room air and tolerated well saturation of 98%. Ambulance came to product picker the patient and left in stable condition accompanied by 2 EMT's. Skin pictures taken and filed in the chart. Flu vaccine and pneumonia vaccine not given due to patient already had it somewhere per . Vital signs checked and recorded. MD and charge nurse aware.
== END 2017-04-14 16:00 | DRG 682 ==
LOC: ER 12:37 → MED 14:29 → TELE 14:44 → MED 04-09 17:47
PROVIDERS: ADMIT Internal Medicine; ATTEND Internal Medicine
DX: N17.9 Acute kidney failure, unspecified (principal); I21.4 Non-ST elevation (NSTEMI) myocardial infarction; E87.0 Hyperosmolality and hypernatremia; N39.0 Urinary tract infection, site not specified; G31.09 Other frontotemporal neurocognitive disorder; E86.0 Dehydration; E78.5 Hyperlipidemia, unspecified; R32 Unspecified urinary incontinence; D64.9 Anemia, unspecified; I10 Essential (primary) hypertension; E03.9 Hypothyroidism, unspecified; F41.9 Anxiety disorder, unspecified; Z79.82 Long term (current) use of aspirin; Z79.899 Other long term (current) drug therapy; E87.6 Hypokalemia; Z22.322 Carrier or suspected carrier of Methicillin resistant Staphylococcus aureus; K59.00 Constipation, unspecified; I25.2 Old myocardial infarction; I70.0 Atherosclerosis of aorta; G62.9 Polyneuropathy, unspecified; Z51.5 Encounter for palliative care; F32.9 Major depressive disorder, single episode, unspecified; F29 Unspecified psychosis not due to a substance or known physiological condition
CPT/HCPCS: 36415; 71010-TC; 80048-TC; 80053-TC; 80061-TC; 80076-TC; 81000-TC; 82306; 82728-TC; 83540-TC; 83605-TC; 83735-TC; 84100-TC; 84439-TC; 84443-TC; 84484-TC; 85025-TC; 85730-TC; 87040-TC; 87081-TC; 87086-TC; 87186-TC; 93307-TC; 97110-TC; 97530-TC; J0696; J1650; J2060; J3480; J3490; J7030; J7050; J7060; J7070; Z7610